=== PATIENT | male | born 1955 | race Caucasian/White ===

== ENCOUNTER 2016-11-17 20:35 | Inpatient (IN) | payer OTHER ==
[~2016-11-17 20:35] MED LIST: ALUM5LIQ PO; CIME200T2 PO; OMEP20TA39 PO; SUST600T4 PO; TRAZ100 PO; ULTR50TA PO
[2016-11-17 20:40] VITALS: O2SAT 100
[2016-11-17 20:41] VITALS: BP 146/80; PULSE 91; RESP 24; TEMP 98.6; O2SAT 100
--- NOTE | 2016-11-17 21:11 | PD ---
HPI Chief Complaint: Respiratory Symptoms Time Seen by Provider: 20:45 Travel History International Travel<30 days: No Contact w/Intl Traveler<30days: No Traveled to known affect area: No History of Present Illness HPI The patient is a 61 year old male who presents to the [facility] emergency department with a history of shortness of breath that he reports is been ongoing for the last 1-2 months. He reports that the symptoms seemed to be gradually getting worse with time. He reports that he last saw his oncologist approximately one month ago. He reports that he underwent 35 rounds of radiation therapy and 8 rounds of chemotherapy and has been told that he is in remission. He reports that his oncologist is Dr. Betancourt. He reports that he has been taking food by mouth for the last 2 months in spite of having a feeding tube in place. He also reports that he's had a tracheostomy in place and does not feel that he needs this any longer. He has attempted to follow-up with a GI doctor as well as an ENT to have both of these devices removed, however he was told that he needed to travel to another city to do this as there are no local physicians that take his insurance. He reports that he does not have a mode of transport. He requested they be removed today in the emergency department. The patient reports that he's had chest pain associated with the shortness of breath. He reports that he's had a cough occasionally productive of white to clear sputum. He reports that he has had intermittent fevers that are subjective over the last month. He reports that he's had chills. The patient reports that he has had drainage around his feeding tube site and is concerned that there may be an infection locally there. The patient denies any neck pain, abdominal pain (other than around his feeding tube site), vomiting, diarrhea, urinary symptoms, or neurologic symptoms. [facility] Past Medical History Narrative Medical The patient's past medical history is significant for throat cancer status post treatment, history of a heart murmur, history of cerebrovascular accident in 2016, history of HIV, acid reflux, history of DVT, history of bipolar disorder Anemia: Yes Arthritis: Yes (OSTEOARTHRITIS) Autoimmune Disease: Yes (HIV) Depression: Yes Cardiovascular Problems: Yes (MURMUR) Cirrhosis: Yes COPD: Yes Cerebrovascular Accident: Yes (CVA 2015) Diminished Hearing: No GERD: Yes Genitourinary: Yes (BPH) Hepatitis: Yes Psychiatric: Yes (PSYCHOSIS - PTSD) Respiratory: Yes (THROAT CA/TRACH) Past Surgical History Narrative Surgical The patient's past surgical history is significant for tracheostomy placement, feeding tube placement Other Surgery: Yes (TRACH) Social History Alcohol Use: Yes (DAILY) Tobacco Use: Yes (DAILY) Substance Use: No Allergies-Medications (Allergen,Severity, Reaction): Coded Allergies: No Known Allergies (Verified , 11/17/16) Reported Meds & Prescriptions Reported Meds & Active Scripts Active Reported Prezista (Darunavir) 800 Mg Tab 800 Mg PO DAILY Genvoya (Gwdtzqqaxtnt-Nxdemrvvtp-Zzsuozkfzhyq-Tenofvir) [phone] Mg Tab 1 Tab PO DAILY Morphine IR (Morphine Sulfate) 15 Mg Tab 15 Mg PO Q12HR PRN Sulfamethoxazole-Trimethoprim 800-160 Mg Tab 1 Tab PO BID PRN Review of Systems Except as stated in HPI: all other systems reviewed are Neg General / Constitutional: Positive: Fever, Chills Eyes: No: Visual changes HENT: Positive: Congestion, No: Headaches Cardiovascular: Positive: Chest Pain or Discomfort, No: Edema Respiratory: Positive: Cough, Shortness of Breath, No: Stridor Gastrointestinal: No: Nausea, Vomiting, Diarrhea, Abdominal Pain Genitourinary: No: Urgency, Frequency, Dysuria, Flank Pain Musculoskeletal: No: Pain Skin: Positive Other (drainage around feeding tube site), No Rash Neurologic: No: Weakness, Focal Abnormalities, Coordination Problem, Change in Mentation, Slurred Speech, Sensory Disturbance Psychiatric: No: Depression Endocrine: No: Polydipsia Hematologic/Lymphatic: No: Easy Bruising Physical Exam Narrative General: The patient is a well-developed, thin appearing male in no acute distress. The patient has a tracheostomy in place that appears to be in good repair without any visible drainage. The patient is saturating 99-100% on room air. Head and Neck exam: Head is normocephalic atraumatic. Eyes: EOMI, pupils are equal round and reactive to light. Nose: Midline septum with pink mucous membranes Mouth: Dentition unremarkable. Moist mucus membranes. Posterior oropharynx is not erythematous. No tonsillar hypertrophy. Uvula midline. Airway patent. Neck: No palpable lymphadenopathy. No nuchal rigidity. No thyromegaly. Tracheostomy in place that appears to be in good repair without any visible drainage. Cardiovascular: Regular rate and rhythm without murmurs, gallops, or rubs. Lungs: Clear to auscultation bilaterally. No wheezes, rhonchi, or rales. Abdomen: Soft, without tenderness to palpation in all 4 quadrants of the abdomen. No guarding, rebound, or rigidity. Normal bowel sounds are audible. The patient has irritation around his feeding tube site and minimal clear drainage. This was cultured. No tenderness on palpation of McBurney's point. Negative Christy' s sign. Extremities: No clubbing, cyanosis, or edema. 2+ pulses in all 4 extremities. No calf tenderness on palpation. Back: No spinous process tenderness to palpation. No costovertebral angle tenderness to palpation. Neurologic Exam: Grossly nonfocal. Skin Exam: No rash noted. Intact skin that is warm and dry. Data Data Last Documented VS Vital Signs Date Time Temp Pulse Resp B/P Pulse Ox O2 Delivery O2 Flow Rate FiO2 11/17/16 21:26 100 Trach Collar 6.00 28 11/17/16 20:41 98.6 91 24 146/80 Orders Electrocardiogram (11/17/16 21:) Complete Blood Count With Diff (11/17/16 21:) Comprehensive Metabolic Panel (11/17/16 21:) Creatine Kinase (Cpk) (11/17/16 21:) Ckmb (Isoenzyme) Profile (11/17/16 21:01) Troponin I (11/17/16 21:) B-Type Natriuretic Peptide (11/17/16 21:01) Prothrombin Time / Inr (Pt) (11/17/16 21:) Act Partial Throm Time (Ptt) (11/17/16 21:01) Arterial Blood Gas (Abg) (11/17/16 21:) Lipase (11/17/16 21:01) Urinalysis - C+S If Indicated (11/17/16 21:) D-Dimer (11/17/16 21:) Magnesium (Mg) (11/17/16 21:) Wound Culture And Gram Stain (11/17/16 21:) Chest, Single Ap (11/17/16 21:) Iv Access Insert/Monitor (11/17/16 21:) Ecg Monitoring (2/12/17 21:01) Oximetry (11/17/16 21:01) Lactic Acid Sepsis Protocol (11/17/16 21:01) Blood Culture (11/17/16 21:01) Ct Pulmonary Angiogram (11/17/16 21:34) Morphine Inj (Morphine Inj) (11/17/16 22:30) Ondansetron Inj (Zofran Inj) (11/17/16 22:30) Sodium Chlor 0.9% 1000 Ml Inj (Ns 1000 M (11/17/16 22:30) Iohexol 350 Inj (Omnipaque 350 Inj) (11/17/16 23:05) Ceftriaxone Inj (Rocephin Inj) (11/17/16 23:45) Azithromycin Inj (Zithromax Inj) (11/17/16 23:45) Admit Order (Ed Use Only) (11/18/16 00:00) Labs Laboratory Tests Test 11/17/16 11/17/16 21:05 21:07 White Blood Count 6.0 TH/MM3 Red Blood Count 3.67 MIL/MM3 Hemoglobin 12.7 GM/DL Hematocrit 36.8 % Mean Corpuscular Volume 100.2 FL Mean Corpuscular Hemoglobin 34.5 PG Mean Corpuscular Hemoglobin 34.5 % Concent Red Cell Distribution Width 12.9 % Platelet Count 181 TH/MM3 Mean Platelet Volume 8.6 FL Neutrophils (%) (Auto) 47.4 % Lymphocytes (%) (Auto) 34.5 % Monocytes (%) (Auto) 10.2 % Eosinophils (%) (Auto) 6.2 % Basophils (%) (Auto) 1.7 % Neutrophils # (Auto) 2.8 TH/MM3 Lymphocytes # (Auto) 2.1 TH/MM3 Monocytes # (Auto) 0.6 TH/MM3 Eosinophils # (Auto) 0.4 TH/MM3 Basophils # (Auto) 0.1 TH/MM3 CBC Comment DIFF FINAL Differential Comment Prothrombin Time 10.3 SEC Prothromb Time International 0.9 RATIO Ratio Activated Partial 25.6 SEC Thromboplast Time D-Dimer Quantitative (PE/DVT) 3.86 MG/L FEU Sodium Level 139 MEQ/L Potassium Level 3.6 MEQ/L Chloride Level 103 MEQ/L Carbon Dioxide Level 27.6 MEQ/L Anion Gap 8 MEQ/L Blood Urea Nitrogen 11 MG/DL Creatinine 0.89 MG/DL Estimat Glomerular Filtration 87 ML/MIN Rate Random Glucose 88 MG/DL Lactic Acid Level 2.0 mmol/L Calcium Level 9.0 MG/DL Magnesium Level 1.9 MG/DL Total Bilirubin 0.2 MG/DL Aspartate Amino Transf 18 U/L (AST/SGOT) Alanine Aminotransferase 17 U/L (ALT/SGPT) Alkaline Phosphatase 108 U/L Total Creatine Kinase 67 U/L Troponin I LESS THAN 0.02 NG/ML B-Type Natriuretic Peptide 92 PG/ML Total Protein 8.1 GM/DL Albumin 3.3 GM/DL Lipase 254 U/L Blood Gas Puncture Site RT RADIAL Blood Gas Patient Temperature 98.6 Blood Gas HCO3 22 mmol/L Blood Gas Base Excess -0.9 mmol/L Blood Gas Oxygen Saturation 89 % Arterial Blood pH 7.53 Arterial Blood Partial 26 mmHg Pressure CO2 Arterial Blood Partial 68 mmHG Pressure O2 Arterial Blood Oxygen Content 15.1 Vol % Arterial Blood 4.6 % Carboxyhemoglobin Arterial Blood Methemoglobin 1.8 % Blood Gas Hemoglobin 12.0 G/DL Oxygen Delivery Device ROOM AIR Blood Gas Inspired Oxygen 21 % [facility] Medical Decision Making Medical Screen Exam Complete: Yes Emergency Medical Condition: Yes Medical Record Reviewed: Yes Interpretation(s) Last Impressions CT Angiography 11/17/162133 Signed Impressions: Service Date/Time: Thursday, November 17, 2016 22:51 - CONCLUSION: 1. No evidence of pulmonary embolism. 2. Aneurysmal dilatation of the descending and descending thoracic aorta to 5.4 cm. 3. Left perihilar pneumonitis with findings of FERCHO in the lingula Enmanuel Cortez MD Chest X-Ray 11/17/162100 Signed Impressions: Service Date/Time: Thursday, November 17, 2016 21:21 - CONCLUSION: 1. Tracheostomy in satisfactory position. Minimal basilar dependent atelectasis. Juan Colin MD Differential Diagnosis Pneumonia, versus congestive heart failure, versus COPD exacerbation, versus pulmonary embolism. Narrative Course During the course of the patients emergency department visit, the patients history, examination, and differential diagnosis were reviewed with the patient. The patient had IV access obtained and blood work sent for analysis. The patient's was on a youth nutritional monitor with oximetry and blood pressure monitoring. An EKG was done on arrival. The patient's EKG shows a sinus rhythm with occasional premature atrial contractions, incomplete right bundle branch block, left anterior fascicular block, no acute ST segment elevation is noted. The patient was provided morphine 4 mg IV 1 for pain, Zofran 4 mg IV for nausea. Normal saline IV fluids were started. After an infiltrate was noted on CTA the patient was given Rocephin 1 g IV, azithromycin 500 mg IV. The patients laboratory studies were reviewed and remarkable for an ABG that showed hypoxemia on room air and the patient reportedly is not on supplemental oxygen at home. The patient's pH was 7.526, PCO2 26.2, PO2 68.4, bicarbonate 21.6. The patient was started on supplemental oxygen by mask to his tracheostomy. He sees remarkable for a white count of 6, hemoglobin 12.7, platelets 181 with a monocytosis at 10.2, CMP is remarkable for GFR of 87, initial set of cardiac enzymes are negative, BNP is 92, lipase 254, PT PTT unremarkable, d-dimer elevated at 3.86, CTA to rule out PE was ordered. Urinalysis was unremarkable. Radiology studies were reviewed and remarkable for a chest x-ray that shows a tracheostomy in satisfactory position, minimal bibasilar dependent atelectasis, CTA to rule out PE shows no evidence of pulmonary embolism, aneurysmal dilatation of the descending and ascending thoracic aorta to 5.4 cm. Left perihilar pneumonitis with findings of FERCHO the lingula. The patients results were discussed with the patient, including the plan of care. I explained that further testing and/ or monitoring is indicated based on the patients history, examination, and/ or laboratory findings. Therefore, I recommended admission for additional evaluation. The patient expressed understanding and was agreeable with this plan. The patient was admitted to the hospital in guarded condition and [facility] Physician Communication Physician Communication The patient's case was discussed with who did agree to admit the patient for further evaluation and treatment at this time. Diagnosis Primary Impression: Pneumonitis Additional Impressions: Tracheostomy present Hypoxia Admitting Information Admitting Physician Requests: Admit Natasha Ibrahim MD Nov 17, 2016 21:11
[2016-11-17 21:18] LABS: BLOOD GAS BASE EXCESS -0.9 mmol/L (-2-2); BLOOD GAS CARBOXYHEMOGLOBIN 4.6 % (0-4); BLOOD GAS HCO3 22 mmol/L (22-26); BLOOD GAS METHEMOGLOBIN 1.8 % (0-2); BLOOD GAS O2 HGB SATURATION 89 % (90-100); BLOOD GAS OXYGEN CONTENT 15.1 Vol % (12.0-20.0); BLOOD GAS PCO2 26 mmHg (38-42); BLOOD GAS PO2 68 mmHG (61-120); CRITICAL VALUE YES; DRAW SITE RT RADIAL; FIO2 21 %; NUMBER OF ARTERIAL PUNCTURES 1; OXYGEN DEVICE ROOM AIR; STAT YES; TEMP CORR TO 98.6; ULNAR PULSE PRESENT
[2016-11-17 21:26] VITALS: O2SAT 100
[2016-11-17 21:55] LABS: AUTOMATED NEUTROPHIL # 2.8 TH/MM3 (1.8-7.7); BASOPHIL # 0.1 TH/MM3 (0-0.2); BASOPHIL % 1.7 % (0.0-2.0); EOSINOPHIL # 0.4 TH/MM3 (0-0.4); EOSINOPHIL % 6.2 % (0.0-4.0); HEMATOCRIT 36.8 % (39.0-51.0); HEMO FLAGS DIFF FINAL; LYMPH % 34.5 % (9.0-44.0); LYMPHOCYTE # 2.1 TH/MM3 (1.0-4.8); MEAN CELL VOLUME 100.2 FL (80.0-100.0); MEAN CORPUSCULAR HEMOGLOBIN 34.5 PG (27.0-34.0); MEAN CORPUSCULAR HGB CONC 34.5 % (32.0-36.0); MONO % 10.2 % (0.0-8.0); NEUT % 47.4 % (16.0-70.0); PLATELET COUNT 181 TH/MM3 (150-450); RED BLOOD COUNT 3.67 MIL/MM3 (4.50-5.90); RED CELL DISTRIBUTION WIDTH 12.9 % (11.6-17.2)
--- NOTE | 2016-11-17 21:58 | RADRPT ---
EXAM DATE/TIME: 11/17/2016 21:21 [facility] COMPARISON: No previous studies available for comparison. INDICATIONS : Short of breath MEDICAL HISTORY : Carcinoma, esophageal. SURGICAL HISTORY : ENCOUNTER: Initial ACUITY: 2 months PAIN SCORE: 0/10 LOCATION: Bilateral chest FINDINGS: A single view of the chest demonstrates tracheostomy in satisfactory position. Minimal basilar depend ent atelectasis. No effusion. No pneumothorax. CONCLUSION: 1. Tracheostomy in satisfactory position. Minimal basilar dependent atelectasis. Juan Colin MD on November 17, 2016 at 21:55 Board Certified Radiologist. This report was verified electronically.
[2016-11-17 22:09] LABS: APTT (PATIENT) 25.6 SEC (24.3-30.1); INTERNATIONAL NORMALIZED RATIO 0.9 RATIO; PROTHROMBIN TIME - PATIENT 10.3 SEC (9.8-11.6)
[2016-11-17 22:22] LABS: ALT (GPT) 17 U/L (12-78); ANION GAP 8 MEQ/L (5-15); AST (GOT) 18 U/L (15-37); BICARBONATE 27.6 MEQ/L (21.0-32.0); BLOOD UREA NITROGEN 11 MG/DL (7-18); CHLORIDE 103 MEQ/L (98-107); GLOMERULAR FILTRATION RATE 87 ML/MIN (>89); MAGNESIUM 1.9 MG/DL (1.5-2.5); POTASSIUM 3.6 MEQ/L (3.5-5.1); SODIUM (NA) 139 MEQ/L (136-145)
[2016-11-17 22:26] LABS: ALKALINE PHOSPHATASE 108 U/L (45-117); TOTAL BILIRUBIN ADULT 0.2 MG/DL (0.2-1.0)
[2016-11-17] MEDS: SODIUM CHLOR 0.9% 1000 ML INJ 1,000 ML IV SCH (22:27)
[2016-11-17 22:28] LABS: CREATINE KINASE 67 U/L (39-308)
[2016-11-17] MEDS ORDERED: ONDANSETRON HCL 4 MG/2 ML VIAL IV PUSH ONE (22:30)
[2016-11-17] MEDS ORDERED: MORPHINE SULFATE 4 MG/ML INJ IV PUSH ONE (22:30)
[2016-11-17] MEDS ORDERED: IOHEXOL 350 MG/ML 10 ML VIAL (for RAD DIAG) IV ONE (23:05)
--- NOTE | 2016-11-17 23:19 | RADRPT ---
EXAM DATE/TIME: 11/17/2016 22:51 [facility] COMPARISON: No previous studies available for comparison. INDICATIONS : Short of breath. IV CONTRAST: 75 cc Omnipaque 350 (iohexol) IV RADIATION DOSE: 7.25 CTDIvol (mGy) MEDICAL HISTORY : Gastroesophageal reflux disease. Chronic obstructive pulmonary disease. CVA. Throat cancer. SURGICAL HISTORY : None. ENCOUNTER: Initial ACUITY: 1 day PAIN SCALE: 0/10 LOCATION: chest TECHNIQUE: Volumetric scanning of the chest was performed using a pulmonary embolism protocol MIP images were re constructed. Using automated exposure control and adjustment of the mA and/or kV according to patien t size, radiation dose was kept as low as reasonably achievable to obtain optimal diagnostic quality images. FINDINGS: Examination of the pulmonary vasculature demonstrates good filling of the main, lobar and segmental b ranches. There are no filling defects to suggest pulmonary embolism. Multiplanar reconstructions are also unremarkable. A tracheostomy tube is in place in the midline. There is aneurysmal dilatation of the face and the ao rta measuring 5.4 cm and the descending thoracic aorta measuring 5.1 cm. Coronary artery calcificatio ns are present. No abnormally enlarged lymph nodes are identified. No pulmonary nodules are identified. No pleural effusions are identified. There is left perihilar opa city without consolidation consisted with perihilar pneumonia. There is a tree in bud appearance cons istent with mycobacterium avium intracellulare in the lingula. CONCLUSION: 1. No evidence of pulmonary embolism. 2. Aneurysmal dilatation of the descending and descending thoracic aorta to 5.4 cm. 3. Left perihilar pneumonitis with findings of FERCHO in the lingula Enmanuel Cortez MD on November 17, 2016 at 23:13 Board Certified Radiologist. This report was verified electronically.
[2016-11-17] MEDS ORDERED: cefTRIAXone INJ 1,000 MG in SODIUM CHLORIDE 0.9% INJ 100 ML IV ONE (23:45)
[2016-11-17] MEDS ORDERED: AZITHROMYCIN INJ 500 MG in SODIUM CHLOR 0.9% 250 ML INJ 250 ML IV ONE (23:45)
[2016-11-18] VITALS (13 sets, daily range): BP systolic 113–138; BP diastolic 61–84; PULSE 73–96; RESP 14–31; TEMP 98.1–98.6; O2SAT 97–99
[2016-11-18] MEDS ORDERED: SODIUM CHLORIDE 0.9% FLUSH 5 ML FLUSH FLUSH PRN (00:15)
[2016-11-18] MEDS ORDERED: BISACODYL 10 MG SUPP PR PRN (00:15)
[2016-11-18] MEDS ORDERED: RESP: ALBUTEROL 2.5 MG/IPRATROPIUM 0.5 MG NEB (PRN) NEB (00:15)
[2016-11-18] MEDS ORDERED: ONDANSETRON HCL 4 MG/2 ML VIAL IVP PRN (00:15)
[2016-11-18] MEDS ORDERED: methylPREDNISolone SOD SUCC 125 MG/2 ML VIAL IV PUSH ONE (00:15)
[2016-11-18] MEDS ORDERED: ACETAMINOPHEN 325 MG TAB PO PRN (00:15)
[2016-11-18] MEDS: MORPHINE SULFATE 4 MG/ML INJ IV PRN ×2 (01:24→04:59)
[2016-11-18] MEDS ORDERED: CHLORHEXIDINE GLUCONATE 2 % 1 PACK (2 CLOTHS) TOP PRN (01:30)
[2016-11-18] MEDS ORDERED: MISCELLANEOUS NURSING INFORMATION XX SCH (01:30)
--- NOTE | 2016-11-18 01:56 | HHI.HP ---
HPI Service [facility] Primary Care Physician [facility] Admission Diagnosis Hypoxia on RA, Pneumonia- suspicioius for FERCHO. Diagnoses: (1) Hypoxia Diagnosis: Principal (2) Pneumonitis Diagnosis: Principal (3) HIV (human immunodeficiency virus infection) Diagnosis: Principal (4) FERCHO (mycobacterium avium-intracellulare) Diagnosis: Principal (5) Tracheostomy present Diagnosis: Principal Travel History International Travel<30 Days: No Contact w/Intl Traveler <30 Da: No Traveled to Known Affected Are: No History of Present Illness This is a 61-year-old male with a PMH of Throat CA s/p Tracheostomy/PEG Tube Placement, HIV (Unknown CD4), Bipolar Disorder, PTSD, h/o CVA and COPD who presented to the ER w/ complaints of SOB x2 months. Pt is significantly poor historian, unable to provide clear history. Reports ongoing SOB x2 months, but then states he was seen by his Oncologist and told he was in remission from Throat CA so would like his Tracheostomy and his PEG Tube removed. Denies fever , chills or chest pain. Does report some drainage from around PEG Tube, however insists he would like it removed. On arrival, BP 146/80, HR 91, O2 sat 100% on RA, Afebrile. ABG with hypoxia, pH 7.53, PCO2 26, PO2 68 on RA, placed on Trach Collar w/ 100% O2 sat. CVC at baseline. Chemistry essentially unremarkable. Lactic Acid normal. Troponin negative. INR 0.9. D-dimer 3.86. CXR with tracheostomy, minimal basilar atelectasis. CTA Pulm negative for PE , noted to have aneurysmal dilatation of descending thoracic aorta, left perihilar pneumonitis with findings of FERCHO. S/p Blood Cultures, Rocephin/ Zithro in ER. Review of Systems Except as stated in HPI: all other systems reviewed are Neg ROS: 14 point review of systems otherwise negative. Past Family Social History Past Medical History PMH: Throat CA s/p Tracheostomy/PEG Tube Placement, HIV (Unknown CD4), Bipolar Disorder, PTSD, h/o CVA and COPD Past Surgical History PAST SURGICAL HISTORY: Tracheostomy, PEG Tube Allergies: Coded Allergies: No Known Allergies (Verified , 11/17/16) Family History PAST FAMILY HISTORY: Reviewed. No h/o DM or CAD Social History PAST SOCIAL HISTORY: Reportedly daily alcohol and tobacco. Negative for drugs. Physical Exam Vital Signs Vital Signs Date Time Temp Pulse Resp B/P Pulse Ox O2 Delivery O2 Flow Rate FiO2 11/18/16 00:30 74 24 113/62 99 Room Air 11/17/16 21:26 100 Trach Collar 6.00 28 11/17/16 20:46 Room Air 11/17/16 20:41 98.6 91 24 146/80 100 11/17/16 20:40 100 Room Air Physical Exam PE: GENERAL: Middle-aged thin, chronically ill appearing white male in no acute distress. Trach collar in place. HEENT: PERRLA, EOMI. No scleral icterus or conjunctival pallor. No lid lag or facial droop. CARDIOVASCULAR: Regular rate and rhythm. No obvious murmurs to auscultation. No chest tenderness to palpation. RESPIRATORY: No obvious rhonchi or wheezing. Clear to auscultation. Breath sounds equal bilaterally. GASTROINTESTINAL: Abdomen soft, non-tender, nondistended. BS normal. PEG tube in place, mild surrounding erythema, serous drainage. MUSCULOSKELETAL: Extremities without clubbing, cyanosis, or edema. No obvious deformities. NEUROLOGICAL: Awake, alert and oriented x4. No focal neurologic deficits. Moving both upper and lower extremities spontaneously. Laboratory Laboratory Tests Test 11/17/16 11/17/16 21:05 21:07 White Blood Count 6.0 Red Blood Count 3.67 Hemoglobin 12.7 Hematocrit 36.8 Mean Corpuscular Volume 100.2 Mean Corpuscular Hemoglobin 34.5 Mean Corpuscular Hemoglobin 34.5 Concent Red Cell Distribution Width 12.9 Platelet Count 181 Mean Platelet Volume 8.6 Neutrophils (%) (Auto) 47.4 Lymphocytes (%) (Auto) 34.5 Monocytes (%) (Auto) 10.2 Eosinophils (%) (Auto) 6.2 Basophils (%) (Auto) 1.7 Neutrophils # (Auto) 2.8 Lymphocytes # (Auto) 2.1 Monocytes # (Auto) 0.6 Eosinophils # (Auto) 0.4 Basophils # (Auto) 0.1 CBC Comment DIFF FINAL Differential Comment Prothrombin Time 10.3 Prothromb Time International 0.9 Ratio Activated Partial 25.6 Thromboplast Time D-Dimer Quantitative (PE/DVT) 3.86 Sodium Level 139 Potassium Level 3.6 Chloride Level 103 Carbon Dioxide Level 27.6 Anion Gap 8 Blood Urea Nitrogen 11 Creatinine 0.89 Estimat Glomerular Filtration 87 Rate Random Glucose 88 Lactic Acid Level 2.0 Calcium Level 9.0 Magnesium Level 1.9 Total Bilirubin 0.2 Aspartate Amino Transf 18 (AST/SGOT) Alanine Aminotransferase 17 (ALT/SGPT) Alkaline Phosphatase 108 Total Creatine Kinase 67 Troponin I LESS THAN 0.02 B-Type Natriuretic Peptide 92 Total Protein 8.1 Albumin 3.3 Lipase 254 Blood Gas Puncture Site RT RADIAL Blood Gas Patient Temperature 98.6 Blood Gas HCO3 22 Blood Gas Base Excess -0.9 Blood Gas Oxygen Saturation 89 Arterial Blood pH 7.53 Arterial Blood Partial 26 Pressure CO2 Arterial Blood Partial 68 Pressure O2 Arterial Blood Oxygen Content 15.1 Arterial Blood 4.6 Carboxyhemoglobin Arterial Blood Methemoglobin 1.8 Blood Gas Hemoglobin 12.0 Oxygen Delivery Device ROOM AIR Blood Gas Inspired Oxygen 21 Date/Time Procedure Status Source Growth 11/17/16 21:15 Aerobic Blood Culture Received Blood Peripheral Pending 11/17/16 21:15 Anaerobic Blood Culture Received Blood Peripheral Pending 11/17/16 21:05 Gram Stain Received Wound Abdomen Pending 11/17/16 21:05 Wound Culture Received Wound Abdomen Pending Result Diagram: 11/17/16210411/17/162104 Assessment and Plan Problem List: (1) Pneumonitis ICD Code: J18.9 Status: Acute (2) Hypoxia ICD Code: R09.02 Status: Acute (3) FERCHO (mycobacterium avium-intracellulare) ICD Code: A31.0 Status: Acute (4) HIV (human immunodeficiency virus infection) ICD Code: Z21 Status: Acute (5) Tracheostomy present ICD Code: Z93.0 Status: Acute Assessment and Plan A/P: 1. Pneumonitis: c/o SOB x1-2 months, now progressively worse, however preoccupied w/ removal of Tracheostomy. CXR w/ minimal basilar atelectasis. CTA Pulm negative for PE, aneurysmal dilatation of descending thoracic aorta, left perihilar pneumonitis with findings of FERCHO in the lingula, images reviewed by me. S/p Blood Cultures, Rocephin/Zithro. Add Blood Cultures for FERCHO, continue w/ IV Abx. Solu-Medrol. h/o HIV, unclear if compliant w/ meds, check lymphocyte panel. Consult ID for further recommendations. 2. Hypoxia: ABG w/ pH 7.53, PCO2 26, PO2 68 on RA, O2 sat 89%. Currently on Trach collar w/ FIO2 28% at 6L, O2 sat 100%. Telemetry, monitor O2 sat. 3. FERCHO: As above, CTA w/ findings consistent w/ FERCHO, +h/o HIV, unclear CD4 count, check Blood Cultures for FERCHO. ID for further eval. DuoNeb, Symbicort. 4. HIV: Unknown CD4. On HAART per med rec, unclear if compliant. Check Lymphocyte Panel. 5. DVT Prophylaxis: SCD/Teds. 6. Social work for d/c planning as needed. 7. Case discussed w/ ER physician at length Physician Certification 2 Midnight Certification Type: Admission for Inpatient Services Order for Inpatient Services The services are ordered in accordance with Medicare regulations or non- Medicare payer requirements, as applicable. In the case of services not specified as inpatient-only, they are appropriately provided as inpatient services in accordance with the 2-midnight benchmark. Estimated LOS (days): 2 days is the estimated time the patient will need to remain in the hospital, assuming treatment plan goals are met and no additional complications. Post-Hospital Plan: Not yet determined Ewa Dominguez MD Nov 18, 2016 01:56
[2016-11-18] MEDS: CHLORHEXIDINE GLUCONATE 2 % 1 PACK (2 CLOTHS) TOP SCH (03:23)
[2016-11-18 04:57] LABS: BLOOD, URINE NEG (NEG); GLUCOSE,URINE NEG (NEG); KETONE, URINE NEG (NEG); NITRITE,URINE NEG (NEG); URINE COLOR LIGHT-YELLOW (YELLW/STRAW)
[2016-11-18 05:03] LABS: COMMENT (UR) CULT NOT INDICATED; CULTURE IF INDICATED CULT NOT INDICATED
[2016-11-18 05:53] LABS: AUTOMATED NEUTROPHIL # 4.9 TH/MM3 (1.8-7.7); BASOPHIL % 0.5 % (0.0-2.0); EOSINOPHIL # 0.2 TH/MM3 (0-0.4); HEMATOCRIT 32.9 % (39.0-51.0); HEMO FLAGS DIFF FINAL; LYMPH % 10.6 % (9.0-44.0); LYMPHOCYTE # 0.6 TH/MM3 (1.0-4.8); MEAN CELL VOLUME 100.4 FL (80.0-100.0); MEAN CORPUSCULAR HEMOGLOBIN 35.2 PG (27.0-34.0); MEAN CORPUSCULAR HGB CONC 35.1 % (32.0-36.0); MONO % 2.9 % (0.0-8.0); PLATELET COUNT 165 TH/MM3 (150-450); RED BLOOD COUNT 3.27 MIL/MM3 (4.50-5.90); RED CELL DISTRIBUTION WIDTH 12.8 % (11.6-17.2)
[2016-11-18 06:12] LABS: ALT (GPT) 15 U/L (12-78); ANION GAP 8 MEQ/L (5-15); AST (GOT) 15 U/L (15-37); BICARBONATE 22.7 MEQ/L (21.0-32.0); BLOOD UREA NITROGEN 12 MG/DL (7-18); CHLORIDE 108 MEQ/L (98-107); GLOMERULAR FILTRATION RATE 89 ML/MIN (>89); POTASSIUM 4.1 MEQ/L (3.5-5.1); SODIUM (NA) 139 MEQ/L (136-145)
[2016-11-18 06:14] LABS: ALKALINE PHOSPHATASE 98 U/L (45-117); TOTAL BILIRUBIN ADULT 0.2 MG/DL (0.2-1.0)
[2016-11-18] MEDS: SODIUM CHLOR 0.9% 1000 ML INJ 1,000 ML IV SCH ×2 (08:39→17:00)
[2016-11-18] MEDS: SODIUM CHLORIDE 0.9% FLUSH 5 ML FLUSH FLUSH SCH ×2 (08:39→21:00)
[2016-11-18] MEDS: ACETAMINOPHEN/HYDROcodone 325 MG/5 MG TAB PO PRN ×3 (08:40→20:58)
--- NOTE | 2016-11-18 09:46 | EKG ---
Date Performed: 11/17/2016 Time Performed: 20:49:23 PTAGE: 61 years EKG: Sinus rhythm WITH FREQUENT SUPRAVENTRICULAR PREMATURE COMPLEXES POSSIBLE RIGHT VENTRICULAR CONDUCTION DELAY LEFT ANTERIOR FASCICULAR BLOCK ABNORMAL ECG Compared to prior tracing no significant change PREVIOUS TRACING : 11/01/2013 21.27.50 DOCTOR: Enmanuel Hemphill Interpretating Date/Time 11/18/2016 09:45:01
--- NOTE | 2016-11-18 15:38 | PD.ID.CON ---
History of Present Illness Service Infectious Disease Consult Requested By Reason for Consult Evaluation and Mment of Primary Care Physician [facility] Diagnoses: History of Present Illness is a 61 y/o male with a PMH of Throat CA s/p Tracheostomy/PEG Tube Placement, HIV (Unknown CD4), Bipolar Disorder, PTSD, h/o CVA and COPD who presented to the ER w/ complaints of SOB x2 months. Pt is significantly poor historian, unable to provide clear history. Reports ongoing SOB x2 months, but then states he was seen by his Oncologist and told he was in remission from Throat CA so would like his Tracheostomy and his PEG Tube removed. Denies fever , chills or chest pain. Does report some drainage from around PEG Tube, however insists he would like it removed. On arrival, BP 146/80, HR 91, O2 sat 100% on RA, Afebrile. ABG with hypoxia, pH 7.53, PCO2 26, PO2 68 on RA, placed on Trach Collar w/ 100% O2 sat. Chemistry essentially unremarkable. Lactic Acid normal. Troponin negative. INR 0.9. D-dimer 3.86. CXR with tracheostomy , minimal basilar atelectasis. CTA Pulm negative for PE, noted to have aneurysmal dilatation of descending thoracic aorta, left perihilar pneumonitis with findings of FERCHO. S/p Blood Cultures, Rocephin/Zithro in ER. Patient reports he has been trying for last few months to have trach and PEG removed but he was told he had to go to [place] for removal by doctors in that town. He reports he has been [facility] doctors and they refuse to remove trach and PEG. Patient reports he eats a full meal and does not need the PEG tube and would like to have it removed. Regarding his HIV meds he reports he has been off these meds for over a week now and only takes these meds when he feels bad. Clearly appears non compliant and could have a resistant HIV strain at this point. He sees at [facility] and would not give me details about when he last saw him and why he has not discussed the side effects of these meds to . ID was consulted due to SOB on presentation, and abnormal CT chest with tree in bud appearance in patient with HIV possible AIDS given fact he is on Bactrim. Review of Systems ROS Limitations: Uncooperative, Psychotic, Poor Historian Constitutional: DENIES: Diaphoretic episodes, Fatigue, Fever, Weight gain, Weight loss, Chills, Dizziness, Change in appetite, Night Sweats Respiratory: COMPLAINS OF: Shortness of breath, DENIES: Sputum production Except as stated in HPI: all other systems reviewed are Neg Past Family Social History Allergies: Coded Allergies: No Known Allergies (Verified , 11/17/16) Past Medical History Throat CA s/p Tracheostomy/PEG Tube Placement, HIV (Unknown CD4), Bipolar Disorder, PTSD, h/o CVA COPD Past Surgical History Tracheostomy, PEG Tube Port placement and removal. Reported Medications Reported Meds & Active Scripts Active Reported Prezista (Darunavir) 800 Mg Tab 800 Mg PO DAILY Genvoya (Bglskacsnkxt-Agcoaqdrue-Whzmqcebwjak-Tenofvir) [phone] Mg Tab 1 Tab PO DAILY Morphine IR (Morphine Sulfate) 15 Mg Tab 15 Mg PO Q12HR PRN Sulfamethoxazole-Trimethoprim 800-160 Mg Tab 1 Tab PO BID PRN Active Ordered Medications Current Medications Medications (Trade) Dose Ordered Sig/Freddy Route Start Time Stop Time Status Last Admin (NS Flush) 2 ml UNSCH PRN FLUSH 11/18/16 00:15 (NS Flush) 2 ml BID FLUSH 11/18/16 09:00 11/18/16 21:00 (Zofran Inj) 4 mg Q6H PRN IVP 11/18/16 00:15 (Dulcolax Supp) 10 mg DAILY PRN CA 11/18/16 00:15 (Tylenol) 650 mg Q6H PRN PO 11/18/16 00:15 ([place] 5-325 Mg) 1 tab Q4H PRN PO 11/18/16 00:15 11/18/16 20:58 Morphine Sulfate 2 mg 2 mg Q3H PRN IV 11/18/16 00:15 11/18/16 04:59 Ceftriaxone Sodium 1000 mg/ Sodium Chloride 100 ml @ 200 mls/hr Q24H IV 11/19/16 00:00 (Zithromax Inj/ NS 250 ml Inj) 250 ml @ 250 mls/hr Q24H IV 11/19/16 01:00 Miscellaneous Information 1 Q361D XX 11/18/16 01:30 11/18/16 01:30 (Chlorhexidine 2% Cloth) 3 pack Taper DAILY@04 TOP 11/18/16 04:00 11/14/17 03:59 11/18/16 03:23 Chlorhexidine Gluconate 3 pack 3 pack UNSCH PRN TOP 11/18/16 01:30 (D5W-1/2 NS 1000 ml Inj) 1,000 ml @ 0 mls/hr Q24H IV 11/18/16 21:00 Family History could not be obtained as patient very aggressive in talking and very disrespectful. Social History daily alcohol and smoking did not quantify. Jeferson ROSALES Has a girl friend of 10 yrs. Physical Exam Vital Signs Vital Signs Date Time Temp Pulse Resp B/P Pulse Ox O2 Delivery O2 Flow Rate FiO2 11/18/16 12:00 98.6 79 21 119/73 98 11/18/16 12:00 76 11/18/16 10:00 86 11/18/16 09:52 98 21 11/18/16 08:00 96 11/18/16 08:00 98.4 96 14 113/61 97 11/18/16 07:00 96 Room Air 11/18/16 06:00 90 11/18/16 04:00 98.5 81 31 117/63 98 11/18/16 04:00 81 11/18/16 02:00 88 11/18/16 00:30 74 24 113/62 99 Room Air 11/17/16 21:26 100 Trach Collar 6.00 28 11/17/16 20:46 Room Air 11/17/16 20:41 98.6 91 24 146/80 100 11/17/16 20:40 100 Room Air Physical Exam GENERAL: Thin built, temporal wasting, well-developed patient, in no apparent distress. SKIN: No rashes, ecchymoses or lesions. Cool and dry. HEAD: Atraumatic. Normocephalic. No temporal or scalp tenderness. EYES: Pupils equal round and reactive. Extraocular motions intact. No scleral icterus. No injection or drainage. ENT: Nose without bleeding, purulent drainage or septal hematoma. Throat without erythema, tonsillar hypertrophy or exudate. Uvula midline. Airway patent. NECK: Trach site ok. Supple, nontender, no meningeal signs. CARDIOVASCULAR: Regular rate and rhythm without murmurs, gallops, or rubs. RESPIRATORY: Clear to auscultation. Breath sounds equal bilaterally. No wheezes , rales, or rhonchi. Prior Port site scar with no e/o infection. Trach site with no e/o infection. PEG tube site with some discharge, tenderness out of proportion to clinical findings (did not even touch the PEG tube site and he started screaming at me and wanted pain meds) GASTROINTESTINAL: Abdomen soft, non-tender, nondistended. MUSCULOSKELETAL: Extremities without clubbing, cyanosis, or edema. No joint tenderness, effusion, or edema noted. No calf tenderness. Negative Homans sign bilaterally. NEUROLOGICAL: Awake and alert. Grossly non focal Psych: aggressive, disrespectful IV line sites with no e/o infection. Laboratory Laboratory Tests Test 11/17/16 11/17/16 11/18/16 11/18/16 21:05 21:07 02:00 04:12 White Blood Count 6.0 6.0 Red Blood Count 3.67 3.27 Hemoglobin 12.7 11.5 Hematocrit 36.8 32.9 Mean Corpuscular Volume 100.2 100.4 Mean Corpuscular Hemoglobin 34.5 35.2 Mean Corpuscular Hemoglobin 34.5 35.1 Concent Red Cell Distribution Width 12.9 12.8 Platelet Count 181 165 Mean Platelet Volume 8.6 8.7 Neutrophils (%) (Auto) 47.4 82.0 Lymphocytes (%) (Auto) 34.5 10.6 Monocytes (%) (Auto) 10.2 2.9 Eosinophils (%) (Auto) 6.2 4.0 Basophils (%) (Auto) 1.7 0.5 Neutrophils # (Auto) 2.8 4.9 Lymphocytes # (Auto) 2.1 0.6 Monocytes # (Auto) 0.6 0.2 Eosinophils # (Auto) 0.4 0.2 Basophils # (Auto) 0.1 0.0 CBC Comment DIFF FINAL DIFF FINAL Differential Comment Prothrombin Time 10.3 Prothromb Time International 0.9 Ratio Activated Partial 25.6 Thromboplast Time D-Dimer Quantitative (PE/DVT) 3.86 Sodium Level 139 139 Potassium Level 3.6 4.1 Chloride Level 103 108 Carbon Dioxide Level 27.6 22.7 Anion Gap 8 8 Blood Urea Nitrogen 11 12 Creatinine 0.89 0.87 Estimat Glomerular Filtration 87 89 Rate Random Glucose 88 119 Lactic Acid Level 2.0 Calcium Level 9.0 8.3 Magnesium Level 1.9 Total Bilirubin 0.2 0.2 Aspartate Amino Transf 18 15 (AST/SGOT) Alanine Aminotransferase 17 15 (ALT/SGPT) Alkaline Phosphatase 108 98 Total Creatine Kinase 67 Troponin I LESS THAN 0.02 B-Type Natriuretic Peptide 92 Total Protein 8.1 7.4 Albumin 3.3 2.9 Lipase 254 Blood Gas Puncture Site RT RADIAL Blood Gas Patient Temperature 98.6 Blood Gas HCO3 22 Blood Gas Base Excess -0.9 Blood Gas Oxygen Saturation 89 Arterial Blood pH 7.53 Arterial Blood Partial 26 Pressure CO2 Arterial Blood Partial 68 Pressure O2 Arterial Blood Oxygen Content 15.1 Arterial Blood 4.6 Carboxyhemoglobin Arterial Blood Methemoglobin 1.8 Blood Gas Hemoglobin 12.0 Oxygen Delivery Device ROOM AIR Blood Gas Inspired Oxygen 21 Nasal Screen MRSA (PCR) NEGATIVE Test 11/18/16 04:30 Urine Color LIGHT-YELLOW Urine Turbidity CLEAR Urine pH 6.0 Urine Specific [place] 1.019 Urine Protein NEG Urine Glucose (UA) NEG Urine Ketones NEG Urine Occult Blood NEG Urine Nitrite NEG Urine Bilirubin NEG Urine Urobilinogen LESS THAN 2.0 Urine Leukocyte Esterase NEG Urine RBC LESS THAN 1 Urine WBC 1 Microscopic Urinalysis Comment CULT NOT INDICATED Date/Time Procedure Status Source Growth 11/17/16 21:15 Aerobic Blood Culture - Preliminary Resulted Blood Peripheral NO GROWTH IN 1 DAY 11/17/16 21:15 Anaerobic Blood Culture - Preliminary Resulted Blood Peripheral NO GROWTH IN 1 DAY 11/17/16 21:05 Gram Stain - Final Resulted Wound Abdomen 11/17/16 21:05 Wound Culture - Preliminary Resulted Gram Negative Seng Result Diagram: 11/18/1641111/18/[address] Angiography 11/17/162133 Signed Impressions: Service Date/Time: Thursday, November 17, 2016 22:51 - CONCLUSION: 1. No evidence of pulmonary embolism. 2. Aneurysmal dilatation of the descending and descending thoracic aorta to 5.4 cm. 3. Left perihilar pneumonitis with findings of FERCHO in the lingula Enmanuel Cortez MD Chest X-Ray 11/17/162100 Signed Impressions: Service Date/Time: Thursday, November 17, 2016 21:21 - CONCLUSION: 1. Tracheostomy in satisfactory position. Minimal basilar dependent atelectasis. Juan Colin MD Assessment and Plan Assessment and Plan Pneumonitis: viral vs atypical PNA, less likely to be PCP. Aneursym of aorta in a young pt rule out syphilitic aortitis. HIV possible AIDS as patient on Bactrim for PCP prophylaxis per review of home meds. Off HAART: patient reports intolerance in the form of nausea and vomiting. PEG tube site tenderness. No overt signs of infection such as erythema. s/p trach reports he has Oropharyngeal cancer h/o neck radiation, chemotherapy. Immune compromised host. Recs: No HAART for now as patient off meds for 1 week and intolerant. Genotype not known so cannot switch. No urgency to start new regimen. Continue Bactrim, follow CD4 count. Check RPR Check Hepatitis panel Check HIV viral load Check urine legionella antigen Check strep pneumo antigen Continue Ceftriaxone IV Continue Azithro IV (once procedures completed ok to change to oral azithro) Consult GI (address PEG tube continuing need and removal) Consult Pulm (abnormal CT chest ? FERCHO given AIDS. d.w about bronchoscopy to further evaluate) Consult ENT (d.w : he recommends consult ENT to see if laryngoscopy needed to assess if subglottic stenosis given h/o surgery and radiation and if appropriate to remove trach upon patient request) Request medical records from [facility]. D/w , , clinical pharmacist Don and RN for patient. [email or web address] patient and significant other in room. He was very unpleasant to talk to and extremely disrespectful. Tried to diffuse situation and provided recommendations. Patient tells me he does not have HIV and that his CD4 count is low from being "nuked while working in [employer]" When questioned about who prescribes HIV meds he says he has a blood doctor not an infection specialist and he does not have HIV. He repeated these statements at least 4 times during my stay making any discussions extremely difficult. Time spent in excess of 60 mins, called (his ID doctor at [facility]) with no response. Will try again. Denise Hernandez MD Nov 18, 2016 15:38
[2016-11-18] MEDS ORDERED: SULF1TAB23 PO (15:55)
[2016-11-18] MEDS ORDERED: MSIR15 PO (15:56)
[2016-11-18] MEDS ORDERED: ELVI1TAB3 PO (15:58)
[2016-11-18] MEDS ORDERED: DARU800T PO (15:58)
[2016-11-18] MEDS: DEXT 5%-NACL 0.45% 1000 ML INJ 1,000 ML IV SCH (21:00)
[2016-11-18 21:53] LABS: AUTOMATED NEUTROPHIL # 4.6 TH/MM3 (1.8-7.7); BASOPHIL % 0.5 % (0.0-2.0); EOSINOPHIL # 0.1 TH/MM3 (0-0.4); EOSINOPHIL % 0.9 % (0.0-4.0); HEMATOCRIT 31.6 % (39.0-51.0); HEMO FLAGS DIFF FINAL; LYMPHOCYTE # 1.4 TH/MM3 (1.0-4.8); MEAN CELL VOLUME 99.3 FL (80.0-100.0); MEAN CORPUSCULAR HEMOGLOBIN 35.6 PG (27.0-34.0); MEAN CORPUSCULAR HGB CONC 35.9 % (32.0-36.0); MONO % 9.4 % (0.0-8.0); NEUT % 68.2 % (16.0-70.0); PLATELET COUNT 170 TH/MM3 (150-450); RED BLOOD COUNT 3.18 MIL/MM3 (4.50-5.90); RED CELL DISTRIBUTION WIDTH 12.7 % (11.6-17.2); WHITE BLOOD COUNT 6.7 TH/MM3 (4.0-11.0)
[2016-11-18 22:15] LABS: APTT (PATIENT) 26.6 SEC (24.3-30.1); PROTHROMBIN TIME - PATIENT 10.8 SEC (9.8-11.6)
[2016-11-19] VITALS (12 sets, daily range): BP systolic 116–135; BP diastolic 59–82; PULSE 60–81; RESP 11–24; TEMP 98.3–98.6; O2SAT 95–99
[2016-11-19] MEDS: AZITHROMYCIN INJ 500 MG in SODIUM CHLOR 0.9% 250 ML INJ 250 ML IV SCH (00:04)
[2016-11-19] MEDS: cefTRIAXone INJ 1,000 MG in SODIUM CHLORIDE 0.9% INJ 100 ML IV SCH (00:04)
[2016-11-19] MEDS: ACETAMINOPHEN/HYDROcodone 325 MG/5 MG TAB PO PRN ×2 (00:05→19:54)
[2016-11-19] MEDS: CHLORHEXIDINE GLUCONATE 2 % 1 PACK (2 CLOTHS) TOP SCH (04:00)
--- NOTE | 2016-11-19 08:22 | MB ---
cc: PEPITO KENT MD DATE OF CONSULTATION November 19, 2016 HISTORY OF PRESENT ILLNESS A 61-year-old male known to me from a previous laryngeal biopsy with throat cancer. He is status post a tracheostomy by Dr. Loyola on May 16. During Dr. Loyola's tracheostomy surgery, I also performed a direct laryngoscopy with a biopsy that revealed a positive squamous cell carcinoma. Again the diagnosis was on May 16. The patient was subsequently treated with chemoradiation therapy completing therapy the first week of September. 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 The patient has not followed up with Dr. Loyola for his tracheostomy nor has he followed up with me for his throat cancer surveillance. He has been treated at the [facility] in [place]. I have no recent notes from them in my office so I am not sure the last time he was seen there. The patient also has a complicated history of previous DVTs more than 10 years ago as well as a pulmonary embolism in May of 2016 at the time of his diagnosis for cancer. He also has a history of HIV which was first diagnosed in 2007. [facility]; however, I am not sure if he is taking those currently. The patient is coming into the hospital with multiple medical problems but continues to be angry that he has a tracheostomy in place and would like it removed. However, he has once again not followed up with his surgeon who placed the tracheostomy and has not cared for his tracheostomy very well. At this time the patient is sitting comfortably in bed and resting and breathing comfortably through the tracheostomy. PAST MEDICAL HISTORY Significant for - 1. 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 Loyola as well as a PEG tube as well as a direct laryngoscopy with biopsy by myself, Dr. Kent. 2. Bipolar disorder. 3. PTSD. 4. Complicated history with blood clotting. PAST SURGICAL HISTORY Significant as above. ALLERGIES He has no known drug allergies. SOCIAL HISTORY Significant ethanol abuse and tobacco abuse. PHYSICAL EXAMINATION GENERAL: The patient is alert and oriented x 3, in no acute stress. VITAL SIGNS: Afebrile. Vital signs stable. HEENT/NECK: Exam reveals tracheostomy in place with crusting in both the inner and outer cannula. There is still a stitch in the flange of the tracheostomy from the surgeon who placed it demonstrating the patient has not been following up with his surgeon. The patient is unable to tolerate a Passy-Nae valve when it is placed. He gets short of breath relatively quickly. At this time a flexible laryngoscopy is performed at bedside, revealed significant laryngeal edema consistent with recently completed radiation and chemotherapy for a large squamous cell carcinoma of the epiglottis. Unable to see the tracheostomy through the larynx. Heart Exam: Regular rate and rhythm. Lungs: Clear to auscultation bilaterally. 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 RECOMMENDATIONS My recommendations is that he continue to follow up with his cancer care as he has been instructed to include continued routine surveillance of his larynx with monthly ENT exams as well as to follow up with his surgeon who placed his tracheostomy for planned decannulation. However, at this point in time, having just recently completed his therapy, I do not recommend the patient be decannulated. He should continue to be followed as the laryngeal edema can take anywhere from 6 months to a year to resolve. At this time my recommendation is that he should be more diligent with his own trache care. He may require some additional teaching from respiratory therapy for this and should follow up with routine visits with his oncologist as well to be evaluated for possible recurrences as recurrent disease is very high in the first six months after treatment for such a large cancer. Otherwise he has been instructed by me that he should follow up in my office once he is discharged so we can continue his routine cancer surveillance. Pepito ASTUDILLO/SSB /8:00 AM /8:10 AM
--- NOTE | 2016-11-19 11:35 | PD.CONS ---
HPI History of Present Illness This is a 61 year old male who was diagnosed with laryngeal cancer, squamous cell carcinoma in May of 2016, at which time he had a tracheostomy and a PEG tube placed. He completed chemoradiation in September of 2016. The patient reports that during treatment, he lost ~40 lbs and was requiring the use of his PEG tube placement. However, since he completed treatment, he has not used his PEG tube, is eating without difficulty- no problems swallowing. He denies any issues with nausea, vomiting, abdominal pain, constipation, or diarrhea. He does note that he has had some purulent drainage from the site from the G tube site for the past month and a half. He states that the site is tender. He would like this removed, but states he will have to be "put to sleep" to have it removed because he has "already been through so much." According to the records, the patient had Woo-Gozam at [facility]. Prior to that, he was seen by our service had an EGD (08/08/14) irregular Z line, normal EGD otherwise , 3 cm hiatal hernia, mild gastritis in the gastric antrum, retroflexed views revealed no abnormalities, Colonoscopy with polypectomy (08/24/14) sessile polyp in the ascending colon, diverticula, scattered in the sigmoid colon, normal colon otherwise. Pathology tubular adenoma. (Janeen Jones) PFSH Past Medical History Laryngeal squamous cell carcinoma HIV (Unknown CD4) Bipolar Disorder PTSD Hx CVA COPD Hx Dysphagia Past Surgical History Tracheostomy PEG Tube Colonoscopy (Janeen Jones) Coded Allergies: No Known Allergies (Verified , 11/17/16) Medications Allergies Coded Allergies Type Severity Reaction Last Updated Verified No Known Allergies 11/17/16 Yes Active Scripts Medications Dose Route/Sig Days Date Category Morphine IR (Morphine Sulfate) 15 Mg Tab 15 Mg PO Q12HR PRN 11/18/16 Reported Family History Noncontributory Social History Reportedly daily alcohol and tobacco. Negative for drugs. (Janeen Jones) Review of Systems Constitutional: COMPLAINS OF: Weight gain, Weight loss, DENIES: Fatigue, Change in appetite Respiratory: COMPLAINS OF: Cough, DENIES: Shortness of breath Gastrointestinal: COMPLAINS OF: Abdominal pain (tenderness at site), DENIES: Constipation, Diarrhea, Nausea, Vomiting, Difficulty Swallowing, Anorexia, Odynophagia, Swelling of Abdomen, Heartburn, Hematemesis Musculoskeletal: DENIES: Joint pain Integumentary: DENIES: Abnormal pigmentation Neurologic: DENIES: Headache Psychiatric: COMPLAINS OF: Mood changes, DENIES: Confusion (RobertJaneen Naranjo MARGIE) GI Exam Vitals I&O Vital Signs Date Time Temp Pulse Resp B/P Pulse Ox O2 Delivery O2 Flow Rate FiO2 11/19/16 09:35 99 Trach Collar 21 11/19/16 08:40 97 Room Air 11/19/16 08:00 98.4 63 20 116/65 97 11/19/16 06:00 74 11/19/16 04:00 68 11/19/16 04:00 98.3 68 11 135/79 96 11/19/16 02:00 74 11/19/16 00:00 76 11/19/16 00:00 98.5 76 13 135/79 95 11/18/16 20:00 98.1 76 22 138/80 99 11/18/16 20:00 76 11/18/16 20:00 99 Room Air 11/18/16 19:42 98 21 11/18/16 18:00 94 11/18/16 16:00 98.4 73 16 136/84 97 11/18/16 16:00 73 11/18/16 14:00 83 11/18/16 12:00 98.6 79 21 119/73 98 11/18/16 12:00 76 I/O 11/18/16 11/18/16 11/18/16 11/19/16 11/19/16 11/19/16 07:00 15:00 23:00 07:00 15:00 23:00 Intake Total 629 ml 1788 ml 420 ml 240 ml Output Total 300 ml 400 ml 1100 ml Balance 629 ml 1488 ml 20 ml -860 ml Intake Oral 1360 ml 420 ml 240 ml IV Total 629 ml 428 ml Output Urine Total 300 ml 400 ml 1100 ml # Voids 2 # Bowel Movements 0 0 [address] Angiography 11/17/161 Signed Impressions: Service Date/Time: Thursday, November 17, 2016 22:51 - CONCLUSION: 1. No evidence of pulmonary embolism. 2. Aneurysmal dilatation of the descending and descending thoracic aorta to 5.4 cm. 3. Left perihilar pneumonitis with findings of FERCHO in the lingula Enmanuel Cortez MD Chest X-Ray 11/17/162100 Signed Impressions: Service Date/Time: Thursday, November 17, 2016 21:21 - CONCLUSION: 1. Tracheostomy in satisfactory position. Minimal basilar dependent atelectasis. Juan Colin MD Laboratory Test 11/18/16 11/19/16 20:50 05:07 White Blood Count 6.7 TH/MM3 Red Blood Count 3.18 MIL/MM3 Hemoglobin 11.3 GM/DL Hematocrit 31.6 % Mean Corpuscular Volume 99.3 FL Mean Corpuscular Hemoglobin 35.6 PG Mean Corpuscular Hemoglobin 35.9 % Concent Red Cell Distribution Width 12.7 % Platelet Count 170 TH/MM3 Mean Platelet Volume 8.7 FL Neutrophils (%) (Auto) 68.2 % Lymphocytes (%) (Auto) 21.0 % Monocytes (%) (Auto) 9.4 % Eosinophils (%) (Auto) 0.9 % Basophils (%) (Auto) 0.5 % Neutrophils # (Auto) 4.6 TH/MM3 Lymphocytes # (Auto) 1.4 TH/MM3 Monocytes # (Auto) 0.6 TH/MM3 Eosinophils # (Auto) 0.1 TH/MM3 Basophils # (Auto) 0.0 TH/MM3 CBC Comment DIFF FINAL Differential Comment Prothrombin Time 10.8 SEC Prothromb Time International 1.0 RATIO Ratio Activated Partial 26.6 SEC Thromboplast Time Rapid Plasma Reagin NON-REACTIVE Date/Time Procedure Status Source Growth 11/18/16 19:05 Mycobacterial Culture Received Blood Peripheral Pending 11/18/16 16:50 Legionella Antigen - Final Complete Urine Clean Catch PRESUMPTIVE NEGATIVE FOR LEGIONELLA P... 11/18/16 16:50 Streptococcus pneumoniae Antigen (M - Final Complete Urine Clean Catch PRESUMPTIVE NEGATIVE FOR STREPTOCOCCU... 11/17/16 21:15 Aerobic Blood Culture - Preliminary Resulted Blood Peripheral NO GROWTH IN 2 DAYS 11/17/16 21:15 Anaerobic Blood Culture - Preliminary Resulted Blood Peripheral NO GROWTH IN 2 DAYS 11/17/16 21:05 Gram Stain - Final Complete Wound Abdomen 11/17/16 21:05 Wound Culture - Final Complete Pseudomonas Aeruginosa Physical Examination HEENT: Normocephalic; atraumatic; no jaundice. Tracheostomy CHEST: CTA CARDIAC: RRR ABDOMEN: Soft, nondistended, nontender; no hepatosplenomegaly; bowel sounds are present in all four quadrants. PEG tube site with small amount of purulent drainage EXTREMITIES: No clubbing, cyanosis, or edema. SKIN: Normal; no rash; no jaundice. NURSERY LABORER: No focal deficits; alert and oriented times three. (Janeen Jones) Assessment and Plan Plan ASSESSMENT: - Hx dysphagia. Dx with squamous cell carcinoma laryngeal cancer in May of 2016, at which time he had a tracheostomy (Rasmussin) and a PEG tube (Woo-Gozam) at [facility]. He completed chemoradiation in September of 2016. ~40 lb wt loss during treatment, but states since completing tx he has not used the PEG tube and has regained 35 lbs. Currently eating well with no difficulty swallowing, decreased appetite, or n/v. He would like this removed, but states he will need to be sedated. However, according to ENT, he has not followed up with any of his physicians and recommended against removal of the tracheostomy because of swelling and also until seen by his physicians. Concern that if he did require further treatment, he may need the PEG again. Pt became upset and states he wants to have it removed and wants it done with anesthesia. - PEG tube site infection. Some purulent drainage and tenderness at site. Pt states it has been like that for 1.5 months. - Pneumonitis, per ID. Getting bronchoscopy today. - AAA, 5.4 cm - HIV per ID - Hx of laryngeal cancer. PLAN: - NPO for bronchoscopy - PEG tube site drainage for GS, C/S - Further recommendations to follow after evaluated by Dr. Dimas (Janeen Jones) Physician Comments seen, examined agree with above he would like to have his peg removed under anesthesia, he was hoping today during bronchoscopy , we will ask pulmonary if possible if not we will have to reevaluate (Leslee Dimas MD) Janeen Jones Nov 19, 2016 11:35 Leslee Dimas MD Nov 19, 2016 16:55
[2016-11-19] MEDS: MORPHINE SULFATE 4 MG/ML INJ IV PRN (14:58)
--- NOTE | 2016-11-19 16:30 | HHI.PR ---
Subjective Remarks Follow-up for pneumonitis. Patient denies any fevers or chills. He is asking if he can have tracheostomy and PEG tube removed. He feels like his PEG tube is infected. Chap[place] for bronchoscopy today. He states that he already be cancer and HIV. Objective Vitals Vital Signs Date Time Temp Pulse Resp B/P Pulse Ox O2 Delivery O2 Flow Rate FiO2 11/19/16 13:33 60 11/19/16 12:00 98.6 63 17 126/76 97 11/19/16 09:35 99 Trach Collar 21 11/19/16 08:40 97 Room Air 11/19/16 08:00 98.4 63 20 116/65 97 11/19/16 06:00 74 11/19/16 04:00 68 11/19/16 04:00 98.3 68 11 135/79 96 11/19/16 02:00 74 11/19/16 00:00 76 11/19/16 00:00 98.5 76 13 135/79 95 11/18/16 20:00 98.1 76 22 138/80 99 11/18/16 20:00 76 11/18/16 20:00 99 Room Air 11/18/16 19:42 98 21 11/18/16 18:00 94 I/O 11/18/16 11/18/16 11/18/16 11/19/16 11/19/16 11/19/16 07:00 15:00 23:00 07:00 15:00 23:00 Intake Total 629 ml 1788 ml 420 ml 240 ml Output Total 300 ml 400 ml 1100 ml Balance 629 ml 1488 ml 20 ml -860 ml Intake Oral 1360 ml 420 ml 240 ml IV Total 629 ml 428 ml Output Urine Total 300 ml 400 ml 1100 ml # Voids 2 # Bowel Movements 0 0 0 Result Diagram: 11/18/16204911/18/[address] Angiography 11/17/162133 Signed Impressions: Service Date/Time: Thursday, November 17, 2016 22:51 - CONCLUSION: 1. No evidence of pulmonary embolism. 2. Aneurysmal dilatation of the descending and descending thoracic aorta to 5.4 cm. 3. Left perihilar pneumonitis with findings of FERCHO in the lingula Enmanuel Cortez MD Chest X-Ray 11/17/162100 Signed Impressions: Service Date/Time: Thursday, November 17, 2016 21:21 - CONCLUSION: 1. Tracheostomy in satisfactory position. Minimal basilar dependent atelectasis. Juan Colin MD Objective Remarks GENERAL: Well-developed well-nourished. In no acute distress. SKIN: Warm and dry. No lesions noted. HEENT: Normocephalic. Pupils equal and round. Mucous membranes pink and moist. Tracheostomy in place. CARDIOVASCULAR: Regular rate and rhythm. No murmur appreciated. RESPIRATORY: No accessory muscle use. Clear to auscultation. Breath sounds equal bilaterally. GASTROINTESTINAL: Abdomen soft, non-tender, nondistended. Bowel sounds x4. PEG tube in place with very mild surrounding erythema and some crusting. MUSCULOSKELETAL: No obvious deformities. No clubbing or cyanosis. No edema. NEUROLOGICAL: Awake and alert. No focal neurological deficits. Moves upper and lower extremities spontaneously. Normal speech. PSYCHIATRIC: Appropriate mood and affect; insight and judgment normal. A/P Problem List: (1) Pneumonitis ICD Code: J18.9 Status: Acute (2) Hypoxia ICD Code: R09.02 Status: Acute (3) FERCHO (mycobacterium avium-intracellulare) ICD Code: A31.0 Status: Acute (4) HIV (human immunodeficiency virus infection) ICD Code: Z21 Status: Acute (5) Tracheostomy present ICD Code: Z93.0 Status: Acute Assessment and Plan 61-year-old male with a PMH of Throat CA s/p Tracheostomy/PEG Tube Placement, HIV, Bipolar Disorder, PTSD, h/o CVA and COPD who presented w/ complaints of SOB x2 months Pneumonitis: c/o SOB x1-2 months, now progressively worse. Concern for FERCHO with history of HIV. Images reviewed: CXR w/ minimal basilar atelectasis. CTA Pulm negative for PE , aneurysmal dilatation of descending thoracic aorta, left perihilar pneumonitis with findings of FERCHO in the lingula. Labs reviewed: Blood cultures with no growth 2 days. Urinary antigens negative. ABG with alkalosis and hypoxia. -Continue IV azithromycin and ceftriaxone, appreciate ID input -Mycobacteria culture pending -Pulmonology consulted, planning on bronchoscopy -O2 and nebs as needed History of HIV: Questionable compliance. Lymphocyte panel pending. ID on board. Continue Bactrim. History of throat cancer: S/P tracheostomy and PEG tube placement. ENT consulted, recommended leaving tracheostomy in place for 6 months to 1 year after cancer treatment, continue outpatient ENT follow-up. PEG tube infection: PEG tube site growing pseudomonas. Continue antibiotics. GI and ID on board. Appreciate specialist input. DVT Prophylaxis: SCD/Teds. Written by Gomez Bajwa, acting as scribe for Dr. Thapa on 11/19/16 at 16:30. The documentation accurately reflects the work performed [id number] by ma on at 1630. Discharge Planning Disposition pending clinical course. Likely transfer to medical floor if the patient is stable after bronchoscopy. Gomez Bajwa Nov 19, 2016 4:30 pm Saran Thapa DO Nov 19, 2016 4:48 pm
[2016-11-19] MEDS ORDERED: LIDOCAINE HCL 2% 50 ML VIAL ONE (17:13)
[2016-11-19] MEDS ORDERED: EPINEPHrine HCL (1:1000) 1 MG/ML VIAL ONE (17:13)
--- NOTE | 2016-11-19 20:30 | HHI.PR ---
Subjective Remarks Bronch cancelled since OR was over booked. He is feeling OK. Less cough and no fever. Objective Vital Signs Date Time Temp Pulse Resp B/P Pulse Ox O2 Delivery O2 Flow Rate FiO2 11/19/16 19:00 Room Air 11/19/16 16:30 98.5 81 22 124/82 99 11/19/16 16:29 20 11/19/16 13:33 60 11/19/16 12:00 98.6 63 17 126/76 97 11/19/16 09:35 99 Trach Collar 21 11/19/16 08:40 97 Room Air 11/19/16 08:00 98.4 63 20 116/65 97 11/19/16 06:00 74 11/19/16 04:00 68 11/19/16 04:00 98.3 68 11 135/79 96 11/19/16 02:00 74 11/19/16 00:00 76 11/19/16 00:00 98.5 76 13 135/79 95 I/O 11/18/16 11/18/16 11/18/16 11/19/16 11/19/16 11/19/16 07:00 15:00 23:00 07:00 15:00 23:00 Intake Total 629 ml 1788 ml 420 ml 240 ml Output Total 300 ml 400 ml 1100 ml Balance 629 ml 1488 ml 20 ml -860 ml Intake Oral 1360 ml 420 ml 240 ml IV Total 629 ml 428 ml Output Urine Total 300 ml 400 ml 1100 ml # Voids 2 4 # Bowel Movements 0 0 0 Result Diagram: 11/18/16204911/18/16411 Objective Remarks GENERAL: This is a well-nourished, well-developed patient, in no apparent distress.Trach tube in neck. CARDIOVASCULAR: Regular rate and rhythm without murmurs, gallops, or rubs. RESPIRATORY: Diffuse expiratory wheezes, diminish breath sounds bilaterally. GASTROINTESTINAL: Abdomen soft, non-tender,nondistended. Normal active bowel sounds MUSCULOSKELETAL: Extremities without clubbing, cyanosis, or edema. NEURO: Alert & Oriented x4 to person, place, time, situation. Moves all ext x4 Assessment and Plan Assessment and Plan Septic Shock Reassessment Septic Shock Reassessment Assessment and Plan Assessment and Plan Problem List: (1) Pneumonitis ICD Code: J18.9 Status: Acute (2) Hypoxia ICD Code: R09.02 Status: Acute (3) FERCHO (mycobacterium avium-intracellulare) ICD Code: A31.0 Status: Acute (4) HIV (human immunodeficiency virus infection) ICD Code: Z21 Status: Acute (5) Tracheostomy present Plan : 1. Cont Antibiotics per ID. 2. Nebs qid , duoneb. 3. Trach Care and suction prn. 4. Bronchoscopy in am. Keep NPO after Midnight. Matilde Mckeon MD Nov 19, 2016 20:30
[2016-11-19] MEDS: DEXT 5%-NACL 0.45% 1000 ML INJ 1,000 ML IV SCH (21:00)
[2016-11-19] MEDS: SODIUM CHLORIDE 0.9% FLUSH 5 ML FLUSH FLUSH SCH (21:00)
[2016-11-19 23:51] LABS: CD 19 PERCENT 2 % (6-29); CD3 ABSOLUTE 406 (840-3060); CD4/CD8 RATIO 0.1 (0.86-5.00); CD8 ABSOLUTE 367 (180-1170); LYMPHOCYTES, ABSOLUTE 712 (850-3900)
[2016-11-20] VITALS (13 sets, daily range): BP systolic 117–130; BP diastolic 62–73; PULSE 64–89; RESP 11–20; TEMP 98.1–98.7; O2SAT 95–99
[2016-11-20] MEDS: AZITHROMYCIN INJ 500 MG in SODIUM CHLOR 0.9% 250 ML INJ 250 ML IV SCH ×2 (00:25→23:53)
[2016-11-20] MEDS: cefTRIAXone INJ 1,000 MG in SODIUM CHLORIDE 0.9% INJ 100 ML IV SCH ×2 (00:26→23:08)
[2016-11-20] MEDS: ACETAMINOPHEN/HYDROcodone 325 MG/5 MG TAB PO PRN ×3 (00:34→19:43)
[2016-11-20] MEDS: CHLORHEXIDINE GLUCONATE 2 % 1 PACK (2 CLOTHS) TOP SCH (04:50)
--- NOTE | 2016-11-20 08:48 | HHI.GIFU ---
Subjective Remarks Resting in bed. Nurse reports he is going to OR at 11am for bronchoscopy. No n /v/abdominal pain Objective Vitals I&O Vital Signs Date Time Temp Pulse Resp B/P Pulse Ox O2 Delivery O2 Flow Rate FiO2 11/20/16 06:00 64 11/20/16 04:00 98.6 68 16 128/66 97 11/20/16 04:00 68 11/20/16 02:00 68 11/20/16 00:00 98.4 68 18 130/71 99 11/20/16 00:00 68 11/19/16 22:00 70 11/19/16 20:00 76 11/19/16 20:00 98.3 76 24 122/59 99 11/19/16 19:55 96 21 11/19/16 19:00 Room Air 11/19/16 16:30 98.5 81 22 124/82 99 11/19/16 16:29 20 11/19/16 13:33 60 11/19/16 12:00 98.6 63 17 126/76 97 11/19/16 09:35 99 Trach Collar 21 I/O 11/19/16 11/19/16 11/19/16 11/20/16 11/20/16 11/20/16 07:00 15:00 23:00 07:00 15:00 23:00 Intake Total 240 ml 812 ml 448 ml Output Total 1100 ml 800 ml Balance -860 ml 812 ml -352 ml Intake Oral 240 ml 500 ml 120 ml IV Total 312 ml 328 ml Output Urine Total 1100 ml 800 ml # Voids 8 3 # Bowel Movements 0 0 0 Laboratory Date/Time Procedure Status Source Growth 11/18/16 19:05 Mycobacterial Culture Received Blood Peripheral Pending 11/18/16 16:50 Legionella Antigen - Final Complete Urine Clean Catch PRESUMPTIVE NEGATIVE FOR LEGIONELLA P... 11/18/16 16:50 Streptococcus pneumoniae Antigen (M - Final Complete Urine Clean Catch PRESUMPTIVE NEGATIVE FOR STREPTOCOCCU... 11/17/16 21:15 Aerobic Blood Culture - Preliminary Resulted Blood Peripheral NO GROWTH IN 2 DAYS 11/17/16 21:15 Anaerobic Blood Culture - Preliminary Resulted Blood Peripheral NO GROWTH IN 2 DAYS 11/17/16 21:05 Gram Stain - Final Complete Wound Abdomen 11/17/16 21:05 Wound Culture - Final Complete Pseudomonas Aeruginosa Imaging Last Impressions CT Angiography 11/17/162133 Signed Impressions: Service Date/Time: Thursday, November 17, 2016 22:51 - CONCLUSION: 1. No evidence of pulmonary embolism. 2. Aneurysmal dilatation of the descending and descending thoracic aorta to 5.4 cm. 3. Left perihilar pneumonitis with findings of FERCHO in the lingula Enmanuel Cortez MD Chest X-Ray 11/17/162100 Signed Impressions: Service Date/Time: Thursday, November 17, 2016 21:21 - CONCLUSION: 1. Tracheostomy in satisfactory position. Minimal basilar dependent atelectasis. Juan Colin MD Physical Exam HEENT: Normocephalic; atraumatic; no jaundice. CHEST: CTA, tracheostomy CARDIAC: RRR ABDOMEN: Soft, nondistended, nontender; no hepatosplenomegaly; bowel sounds are present in all four quadrants. PEG tube site with small amount purulent drainage, tenderness EXTREMITIES: No clubbing, cyanosis, or edema. SKIN: Normal; no rash; no jaundice. SUPERVISOR GLUING: No focal deficits; alert and oriented times three. Assessment and Plan Plan ASSESSMENT: - Hx dysphagia. 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 He completed chemoradiation in September of 2016. ~40 lb wt loss during treatment, but states since completing tx he has not used the PEG tube and has regained 35 lbs. Currently eating well with no difficulty swallowing, decreased appetite, or n/v. He would like this removed, but states he will need to be sedated. However, according to ENT, he has not followed up with any of his physicians and recommended against removal of the tracheostomy because of swelling and also until seen by his physicians. Pt wants to have his PEG removed, but wants it done with anesthesia. He is scheduled for bronchoscopy at 11am, will see if they can pull it at that time. - PEG tube site infection. Some purulent drainage and tenderness at site. Pt states it has been like that for 1.5 months. Cx ordered - Pneumonitis, per ID. Getting bronchoscopy today- 11am in or. - AAA, 5.4 cm - HIV per ID - Hx of laryngeal cancer. PLAN: - NPO for bronchoscopy - PEG tube site drainage for GS, C/S - Will see if PEG can be pulled at same time as bronchoscopy - Further recommendations to follow after evaluated by Dr. Dimas ADDENDUM: 1305, PEG tube removed without difficulty while still under anesthesia in OR. Tolerated well Janeen Jnoes Nov 20, 2016 08:48
[2016-11-20] MEDS: SODIUM CHLORIDE 0.9% FLUSH 5 ML FLUSH FLUSH SCH ×2 (08:58→19:44)
[2016-11-20] MEDS: SULFAMETHOXAZOLE-TRIMETHOPRIM DS 800-160 MG TAB PO SCH (08:58)
--- NOTE | 2016-11-20 10:04 | MB ---
cc: SABRINA MEJÍA DATE OF CONSULTATION 11/18/2016 REASON FOR CONSULTATION Pneumonia and immunocompromised state in a patient with tracheostomy. HISTORY OF THE PRESENT ILLNESS This is a 61-year-old white male with a prior history of carcinoma of the larynx status post tracheostomy and PEG tube placement and previous history of HIV disease and bipolar disorder with PTSD was admitted through the ER for shortness of breath and wheezing. The patient apparently has been short of breath for over a month and he has a cough. He has been eating regular food even though he had a PEG tube in place that was placed at [facility]. He also had a PEG tube in place since this past year and has received radiation therapy for his throat cancer. The patient also wanted his PEG tube discontinued but upon admission the patient apparently had a CTA of the chest which demonstrated no pulmonary emboli but had a descending aortic aneurysm as well as pneumonia in the left perihilar region. Further cultures from the sputum and trache are pending. He denies any hemoptysis but has had some low grade fevers and the patient's HIV disease is being monitored at the HIV clinic but not on any active therapy at this point. The CT chest also demonstrated evidence of bronchiectasis in tree-in-bud appearance suggestive of atypical mycobacterial infection. PAST MEDICAL HISTORY The past history has included: 1. HIV disease. 2. Status post tracheostomy for laryngeal carcinoma and radiation therapy. 3. PEG tube placement. 4. History of posttraumatic stress disorder. 5. History of CVA. 6. Bipolar disorder. 7. He has had Kuxkhb-H-[id number] placed and removed in the past. MEDICATIONS List included: 1. Prezista. 2. Genvoya (which is elvitegravir, cobicistat, emtricitabine, tenofovir) 150/150/200/10 milligrams tablets daily. 3. Morphine as needed. 4. Bactrim one twice a day as needed. SOCIAL HISTORY Habits, the patient has a prior history of smoking for over 20 years about a pack per day. Alcohol use quite regular in the past. FAMILY HISTORY Noncontributory. REVIEW OF SYSTEMS Patient has lost weight. He has hoarseness and he has wheezing and cough. He has epigastric distress. Denies leg swelling or skin lesions. He has anxiety, depression and history of aggressive behavior. PHYSICAL EXAMINATION GENERAL: This is a well built, middle-aged white male in no acute distress. VITAL SIGNS: Blood pressure 112/60, pulse is 90, respiratory rate 22, temperature 98.5. HEENT: Head is normocephalic. Pupils are reactive and equal. Tongue is moist. Throat is clear. NECK: There is a trache tube in place with no inflammation surrounding it. Whitish secretions from the trache. No lymphadenopathy. CHEST: Equal movements with occasional expiratory wheeze throughout both lungs dawkins. No crackles on either side. HEART: The heart sounds are regular S1-S2. No murmur. No S3. ABDOMEN: Soft. Scaphoid without masses. No organomegaly or tenderness. Bowel sounds are active. EXTREMITIES: No edema. Mild varicosities. No gross motor deficits. NEUROLOGICAL: Cranial nerves are grossly intact. RECTAL: Examination is deferred. SKIN: No lesions. IMPRESSION 1. Perihilar pneumonia with immunocompromised state, rule out PCP. 2. History of HIV disease. 3. Aneurysm of the ascending aorta. 4. COPD. 5. History of laryngeal cancer with a tracheostomy tube placement. 6. Depression and anxiety. PLAN The patient was advised that a bronchoscopy will be scheduled to evaluate the pulmonary infiltrates and to get cultures and bronchial washings to evaluate him for PCP and/or atypical mycobacterial infection. Nebulized DuoNeb solution will be added q.i.d. and oxygen supplementation at 2 liters nasal cannula and aerosol for the trache in case he has thick secretions. The antibiotic therapy is being managed by Dr. Hernandez and I have discussed with her the same. The patient will be kept n.p.o. in the a.m. and a coagulation profile ordered as well. I will follow the case with you Dr. Hernandez. Thank you for this consultation. MD MICHELLE Mckeon/ALDO /8:34 PM /9:58 AM
[2016-11-20] MEDS ORDERED: PROPOFOL 200 MG/20 ML AMP IV ONE (12:00)
[2016-11-20] MEDS ORDERED: MIDAZOLAM HCL 2 MG/2 ML VIAL ONE (12:24)
[2016-11-20] MEDS ORDERED: LIDOCAINE HCL 2% 50 ML VIAL E-TRACHE ONE (12:52)
--- NOTE | 2016-11-20 13:58 | RADRPT ---
EXAM DATE/TIME: 11/20/2016 13:29 [facility] COMPARISON: CHEST SINGLE AP, November 17, 2016, 21:21. INDICATIONS : Post bronchoscopy. MEDICAL HISTORY : Gastroesophageal reflux disease. Chronic obstructive pulmonary disease. HIV. CVA. Throat cancer. SURGICAL HISTORY : None. ENCOUNTER: Initial ACUITY: 1 day PAIN SCORE: 110 LOCATION: Bilateral chest FINDINGS: 2 AP portable erect views of the chest were obtained and demonstrate no evidence of a pneumothorax. T he tracheostomy tube remains in place. There are no confluent infiltrates or effusions. The heart siz e is within normal limits with no perihilar edema. There are multiple overlying electrocardiogram tamanna ds. CONCLUSION: No acute disease. Romario Clarke MD on November 20, 2016 at 13:55 Board Certified Radiologist. This report was verified electronically.
[2016-11-20] MEDS: DEXT 5%-NACL 0.45% 1000 ML INJ 1,000 ML IV SCH (19:44)
--- NOTE | 2016-11-20 20:35 | HHI.PR ---
Subjective Remarks Follow-up for pneumonitis, cancer of epiglottis s/p chemoradiation, s/p trach, s /p PEG tube. Mr. Winston is accompanied by his fiance. Mr. Winston reports no fever , chills. In the mornings, he sometimes have mild respiratory difficulties. He is waiting for bronchoscopy today and PEG tube will likely be removed during bronch as well. Tolerating diet well. Objective Vitals Vital Signs Date Time Temp Pulse Resp B/P Pulse Ox O2 Delivery O2 Flow Rate FiO2 11/20/16 19:00 Room Air 11/20/16 18:00 89 11/20/16 16:00 77 11/20/16 16:00 98.4 77 18 117/62 95 11/20/16 14:00 74 11/20/16 14:00 11/20/16 13:45 98 22 128/78 99 Room Air 11/20/16 13:30 99 20 120/83 99 Room Air 11/20/16 13:20 98.2 89 14 121/87 99 Room Air 11/20/16 10:00 64 11/20/16 09:35 99 21 11/20/16 08:00 98.7 64 11 119/63 96 11/20/16 08:00 64 11/20/16 07:00 Room Air 11/20/16 06:00 64 11/20/16 04:00 98.6 68 16 128/66 97 11/20/16 04:00 68 11/20/16 02:00 68 11/20/16 00:00 98.4 68 18 130/71 99 11/20/16 00:00 68 11/19/16 22:00 70 I/O 11/19/16 11/19/16 11/19/16 11/20/16 11/20/16 11/20/16 07:00 15:00 23:00 07:00 15:00 23:00 Intake Total 240 ml 812 ml 448 ml 1450 ml Output Total 1100 ml 800 ml 575 ml Balance -860 ml 812 ml -352 ml 875 ml Intake Oral 240 ml 500 ml 120 ml 0 ml IV Total 312 ml 328 ml 550 ml Other 900 ml Output Urine Total 1100 ml 800 ml 575 ml # Voids 8 3 2 # Bowel Movements 0 0 0 0 Result Diagram: 11/18/16204911/18/16411 Imaging Last Impressions Chest X-Ray 11/20/16 0000 Signed Impressions: Service Date/Time: Sunday, November 20, 2016 13:29 - CONCLUSION: No acute disease. Romario Clarke MD CT Angiography 11/17/16 2134 Signed Impressions: Service Date/Time: Thursday, November 17, 2016 22:51 - CONCLUSION: 1. No evidence of pulmonary embolism. 2. Aneurysmal dilatation of the descending and descending thoracic aorta to 5.4 cm. 3. Left perihilar pneumonitis with findings of FERCHO in the lingula Enmanuel Cortez MD Objective Remarks GENERAL: AOX3, NAD. SKIN: Warm and dry. HEAD: Normocephalic. EYES: No scleral icterus. No injection or drainage. NECK: Supple, trachea midline. No JVD or lymphadenopathy. CARDIOVASCULAR: Regular rate and rhythm without murmurs, gallops, or rubs. RESPIRATORY: Breath sounds equal bilaterally. No accessory muscle use. s/p trach. GASTROINTESTINAL: Abdomen soft, non-tender, nondistended. s/p PEG tube placement. Tender around the peg tube site. MUSCULOSKELETAL: No cyanosis, or edema. BACK: Nontender without obvious deformity. No CVA tenderness. Procedures Bronch, PEG tube removal 11/20/2016. A/P Problem List: (1) Pneumonitis ICD Code: J18.9 Status: Acute (2) Hypoxia ICD Code: R09.02 Status: Acute (3) FERCHO (mycobacterium avium-intracellulare) ICD Code: A31.0 Status: Acute (4) HIV (human immunodeficiency virus infection) ICD Code: Z21 Status: Acute (5) Tracheostomy present ICD Code: Z93.0 Status: Acute Assessment and Plan Mr. Winston is a 61-year-old male with a PMH of Throat CA s/p Tracheostomy/PEG Tube Placement, HIV, Bipolar Disorder, PTSD, h/o CVA and COPD who presented w/ complaints of SOB x2 months Pneumonitis: c/o SOB x1-2 months, now progressively worse. Concern for FERCHO with history of HIV. Images reviewed: CXR w/ minimal basilar atelectasis. CTA Pulm negative for PE , aneurysmal dilatation of descending thoracic aorta, left perihilar pneumonitis with findings of FERCHO in the lingula. Labs reviewed: Blood cultures with no growth 2 days. Urinary antigens negative. ABG with alkalosis and hypoxia. -Continue IV azithromycin and ceftriaxone, appreciate ID input -Mycobacteria culture pending -Pulmonary following, Bronch planned today 11/20/2016 - with additional plan to remove PEG tube. -O2 and nebs as needed History of HIV: Questionable compliance. - CD4 count very low around 30. - Patient is already on Bactrim prophylaxis. He is also getting daily Azithromycin. - Once daily dosing is completed, patient will need weekly Azithromycin 1200mg. - Discussed with ID on 11/20/2016. History of throat cancer: S/P tracheostomy and PEG tube placement. ENT consulted, recommended leaving tracheostomy in place for 6 months to 1 year after cancer treatment, continue outpatient ENT follow-up. PEG tube infection: PEG tube site growing pseudomonas. Continue antibiotics. GI and ID on board. Likely removal of PEG tube today. DVT Prophylaxis: SCD/Teds. Saran Thapa DO Nov 20, 2016 20:35
[2016-11-20] MEDS: MORPHINE SULFATE 4 MG/ML INJ IV PRN (23:14)
[2016-11-21] VITALS (13 sets, daily range): BP systolic 117–138; BP diastolic 69–87; PULSE 70–92; RESP 11–25; TEMP 98–98.6; O2SAT 92–100
[2016-11-21] MEDS: CHLORHEXIDINE GLUCONATE 2 % 1 PACK (2 CLOTHS) TOP SCH (04:00)
[2016-11-21] MEDS: SODIUM CHLORIDE 0.9% FLUSH 5 ML FLUSH FLUSH SCH ×2 (07:59→19:49)
[2016-11-21] MEDS: MORPHINE SULFATE 4 MG/ML INJ IV PRN ×3 (12:27→19:59)
--- NOTE | 2016-11-21 16:07 | HHI.PR ---
Addendum to Inpatient Note Addendum Reason: Additional Documentation Additional Information d/w Clinically pt has no SOB or CP, No fevers Low CD4 count: ? compliance with HAART. Will not start HAART inpatient. Patient to see his ID Doctor Dr.Wang MA at PEG tube site likely colonization not infection clinically. DC Ceftriaxone IV DC Azithro IV daily Discharge recs: Azithro 1200 mg po daily 1 month supply Bactrim DS 1 po Mon, Wed and Fri. Follow up with patients HIV/ID physician: Will sign off please call back if any change in clinical condition. Denise Hernandez MD Nov 21, 2016 16:07
[2016-11-21] MEDS ORDERED: AZITHROMYCIN 600 MG TAB PO SCH (17:00)
--- NOTE | 2016-11-21 17:18 | HHI.PR ---
Subjective Remarks Follow-up for pneumonitis, cancer of epiglottis s/p chemoradiation. Patient is currently doing well. He underwent bronchoscopy and PEG tube removal yesterday. He is tolerating diet well. Denies any chest pain, shortness of breath, fever or chills. Objective Vitals Vital Signs Date Time Temp Pulse Resp B/P Pulse Ox O2 Delivery O2 Flow Rate FiO2 11/21/16 14:00 79 11/21/16 12:00 98.4 89 21 138/87 100 11/21/16 12:00 89 11/21/16 10:00 92 11/21/16 08:00 70 11/21/16 08:00 98.2 76 18 137/74 92 11/21/16 07:00 Room Air 11/21/16 06:00 74 11/21/16 04:00 98.0 74 11 136/83 94 11/21/16 04:00 74 11/21/16 02:00 72 11/21/16 00:00 98.1 73 25 129/71 98 11/21/16 00:00 74 11/20/16 22:00 75 11/20/16 20:00 98.1 80 20 126/73 95 11/20/16 20:00 80 11/20/16 19:33 98 21 11/20/16 19:00 Room Air 11/20/16 18:00 89 I/O 11/20/16 11/20/16 11/20/16 11/21/16 11/21/16 11/21/16 07:00 15:00 23:00 07:00 15:00 23:00 Intake Total 448 ml 1450 ml 240 ml 590 ml 480 ml Output Total 800 ml 575 ml Balance -352 ml 875 ml 240 ml 590 ml 480 ml Intake Oral 120 ml 0 ml 240 ml 240 ml 480 ml IV Total 328 ml 550 ml 0 ml 350 ml Other 900 ml Output Urine Total 800 ml 575 ml # Voids 3 2 4 3 3 # Bowel Movements 0 0 0 0 0 Result Diagram: 11/18/16204911/18/16411 Imaging Last Impressions Chest X-Ray 11/20/16 0000 Signed Impressions: Service Date/Time: Sunday, November 20, 2016 13:29 - CONCLUSION: No acute disease. Romario Clarke MD CT Angiography 11/17/162133 Signed Impressions: Service Date/Time: Thursday, November 17, 2016 22:51 - CONCLUSION: 1. No evidence of pulmonary embolism. 2. Aneurysmal dilatation of the descending and descending thoracic aorta to 5.4 cm. 3. Left perihilar pneumonitis with findings of FERCHO in the lingula Enmanuel Cortez MD Objective Remarks GENERAL: AOX3, NAD. SKIN: Warm and dry. HEAD: Normocephalic. EYES: No scleral icterus. No injection or drainage. NECK: Supple, trachea midline. No JVD or lymphadenopathy. CARDIOVASCULAR: Regular rate and rhythm without murmurs, gallops, or rubs. RESPIRATORY: Breath sounds equal bilaterally. No accessory muscle use. s/p trach. GASTROINTESTINAL: Abdomen soft, non-tender, nondistended. s/p PEG tube placement. Tender around the peg tube site. MUSCULOSKELETAL: No cyanosis, or edema. BACK: Nontender without obvious deformity. No CVA tenderness. Procedures Bronch, PEG tube removal 11/20/2016. A/P Problem List: (1) Pneumonitis ICD Code: J18.9 Status: Acute (2) Hypoxia ICD Code: R09.02 Status: Acute (3) FERCHO (mycobacterium avium-intracellulare) ICD Code: A31.0 Status: Acute (4) HIV (human immunodeficiency virus infection) ICD Code: Z21 Status: Acute (5) Tracheostomy present ICD Code: Z93.0 Status: Acute Assessment and Plan Mr. Winston is a 61-year-old male with a PMH of Throat CA s/p Tracheostomy/PEG Tube Placement, HIV, Bipolar Disorder, PTSD, h/o CVA and COPD who presented w/ complaints of SOB x2 months Pneumonitis: c/o SOB x1-2 months, now progressively worse. Concern for FERCHO with history of HIV. Images reviewed: CXR w/ minimal basilar atelectasis. CTA Pulm negative for PE , aneurysmal dilatation of descending thoracic aorta, left perihilar pneumonitis with findings of FERCHO in the lingula. Labs reviewed: Blood cultures with no growth 2 days. Urinary antigens negative. ABG with alkalosis and hypoxia. -Ceftriaxone and azithromycin IV discontinued. - Per ID will continue azithromycin 1200 mg by mouth every weekly and Bactrim Friday -Pulmonary following, Bronch done 11/20/2016. PEG tube was removed on the same day. -O2 and nebs as needed History of HIV: Questionable compliance. - CD4 count very low around 30. - Patient is already on Bactrim prophylaxis. History of throat cancer: S/P tracheostomy and PEG tube placement. ENT consulted, recommended leaving tracheostomy in place for 6 months to 1 year after cancer treatment, continue outpatient ENT follow-up. DVT Prophylaxis: SCD/Teds. We'll discharge patient tomorrow in the morning. Saran Thapa DO Nov 21, 2016 5:18 pm
[2016-11-21] MEDS ORDERED: AZIT600T PO (17:20)
[2016-11-21] MEDS ORDERED: BACT800T5 PO (17:20)
--- NOTE | 2016-11-21 18:44 | MP ---
cc: Matilde MCKEON M.D. DATE OF SURGERY 11/21/16 PROCEDURE Fiberoptic bronchoscopy with brushings, washings and lavage. PREOPERATIVE DIAGNOSIS Bilateral lung infiltrates. POSTOPERATIVE DIAGNOSIS Bilateral lung infiltrates with immunocompromised state. ANESTHESIA General. The patient had a tracheostomy in place. SURGEON Dr. Lauro Mckeon PROCEDURE AND FINDINGS The patient was sedated with IV Diprivan and was ventilated via the trache tube. The Olympus IT 180 bronchoscope was used to visualize bronchi. The scope was advanced via the tracheostomy tube into the trachea. Trachea and chary appeared normal. Scope was then advanced through the right mainstem and right upper lobe segmental bronchi. These bronchi demonstrated mild endobronchitis with mucoid secretions. These were suctioned out. Next, the right middle and lower lobe segmental bronchi were visualized which demonstrated mild endobronchitis with mucoid secretions. These were suctioned out and saline washings were done. Scope was also advanced into the left mainstem and left upper lobe segmental bronchi. These bronchi demonstrated moderate endobronchitis with mucosal edema and mucosal ridging and thick mucoid secretions. These were suctioned out. Saline washings were done. Brushings were done for micro and cytology. Scope was also advanced in the left lower lobe segmental bronchi which demonstrated moderate endobronchitis with mucoid secretions. These were suctioned out. Saline washings and lavage were done and the procedure was then terminated. No endobronchial lesions were seen on either side. MD MICHELLE Mckeon/ /1:11 PM /6:37 PM
[2016-11-21] MEDS ORDERED: ALBUTEROL SULFATE 90 MCG/ACT HFA 8 GM INHALER INH PRN (19:45)
--- NOTE | 2016-11-21 19:45 | HHI.PR ---
Subjective Remarks Bronch results are pending. Feels better. . Less cough and no fever. Trach secretions are clear. Objective Vital Signs Date Time Temp Pulse Resp B/P Pulse Ox O2 Delivery O2 Flow Rate FiO2 11/21/16 19:00 Room Air 11/21/16 18:25 95 11/21/16 18:00 76 11/21/16 16:00 98.5 82 19 117/74 100 11/21/16 16:00 82 11/21/16 14:00 79 11/21/16 12:00 98.4 89 21 138/87 100 11/21/16 12:00 89 11/21/16 10:00 92 11/21/16 08:00 70 11/21/16 08:00 98.2 76 18 137/74 92 11/21/16 07:00 Room Air 11/21/16 06:00 74 11/21/16 04:00 98.0 74 11 136/83 94 11/21/16 04:00 74 11/21/16 02:00 72 11/21/16 00:00 98.1 73 25 129/71 98 11/21/16 00:00 74 11/20/16 22:00 75 11/20/16 20:00 98.1 80 20 126/73 95 11/20/16 20:00 80 I/O 11/20/16 11/20/16 11/20/16 11/21/16 11/21/16 11/21/16 07:00 15:00 23:00 07:00 15:00 23:00 Intake Total 448 ml 1450 ml 240 ml 590 ml 480 ml Output Total 800 ml 575 ml Balance -352 ml 875 ml 240 ml 590 ml 480 ml Intake Oral 120 ml 0 ml 240 ml 240 ml 480 ml IV Total 328 ml 550 ml 0 ml 350 ml Other 900 ml Output Urine Total 800 ml 575 ml # Voids 3 2 4 3 3 # Bowel Movements 0 0 0 0 0 Result Diagram: 11/18/16204911/18/16411 Objective Remarks GENERAL: This is a well-nourished, well-developed patient, in no apparent distress.Trach tube in neck. CARDIOVASCULAR: Regular rate and rhythm without murmurs, gallops, or rubs. RESPIRATORY: Diffuse expiratory wheezes, diminished breath sounds bilaterally. GASTROINTESTINAL: Abdomen soft, non-tender,nondistended. Normal active bowel sounds MUSCULOSKELETAL: Extremities without clubbing, cyanosis, or edema. NEURO: Alert & Oriented x4 to person, place, time, situation. Moves all ext x4 Assessment and Plan Assessment and Plan Assessment and Plan Assessment and Plan Problem List: (1) Pneumonitis ICD Code: J18.9 Status: Acute (2) Hypoxia ICD Code: R09.02 Status: Acute (3) FERCHO (mycobacterium avium-intracellulare) ICD Code: A31.0 Status: Acute (4) HIV (human immunodeficiency virus infection) ICD Code: Z21 Status: Acute (5) Tracheostomy present Plan : 1. Cont Antibiotics per ID. 2. D/C Nebs and add Albuterol HFA , 2 puffs qid prn 3. Trach Care and suction prn. 4. Switch to PO meds in am. 5. Home in am for OP F/UMatilde Shepard MD Nov 21, 2016 19:45
[2016-11-21] MEDS: DEXT 5%-NACL 0.45% 1000 ML INJ 1,000 ML IV SCH (19:49)
[2016-11-22] VITALS: BP 128/75; PULSE 74; RESP 18; TEMP 98.5; O2SAT 97
[2016-11-22 02:00] VITALS: PULSE 75
[2016-11-22 04:00] VITALS: BP 128/71; PULSE 76; RESP 17; TEMP 98.7; O2SAT 95
[2016-11-22] MEDS: CHLORHEXIDINE GLUCONATE 2 % 1 PACK (2 CLOTHS) TOP SCH (04:00)
[2016-11-22 06:00] VITALS: PULSE 65
[2016-11-22] MEDS ORDERED: MSIR15 PO (07:59)
[2016-11-22 08:00] VITALS: BP 128/75; PULSE 69; RESP 16; TEMP 98.2; O2SAT 95
--- NOTE | 2016-11-22 08:01 | HHI.DS ---
Discharge Summary Admission Date Nov 18, 2016 at 12:02 am Discharge Date: Nov 22, 2016 Admitting Diagnosis Hypoxia on RA, Pneumonia- suspicioius for FERCHO. (1) Pneumonitis ICD Code: J18.9 Diagnosis: Principal (2) Hypoxia ICD Code: R09.02 (3) FERCHO (mycobacterium avium-intracellulare) ICD Code: A31.0 (4) HIV (human immunodeficiency virus infection) ICD Code: Z21 Diagnosis: Principal (5) Tracheostomy present ICD Code: Z93.0 Procedures Bronch, PEG tube removal 11/20/2016. Brief History - From Admission This is a 61-year-old male with a PMH of Throat CA s/p Tracheostomy/PEG Tube Placement, HIV (Unknown CD4), Bipolar Disorder, PTSD, h/o CVA and COPD who presented to the ER w/ complaints of SOB x2 months. Pt is significantly poor historian, unable to provide clear history. Reports ongoing SOB x2 months, but then states he was seen by his Oncologist and told he was in remission from Throat CA so would like his Tracheostomy and his PEG Tube removed. Denies fever , chills or chest pain. Does report some drainage from around PEG Tube, however insists he would like it removed. On arrival, BP 146/80, HR 91, O2 sat 100% on RA, Afebrile. ABG with hypoxia, pH 7.53, PCO2 26, PO2 68 on RA, placed on Trach Collar w/ 100% O2 sat. CVC at baseline. Chemistry essentially unremarkable. Lactic Acid normal. Troponin negative. INR 0.9. D-dimer 3.86. CXR with tracheostomy, minimal basilar atelectasis. CTA Pulm negative for PE , noted to have aneurysmal dilatation of descending thoracic aorta, left perihilar pneumonitis with findings of FERCHO. S/p Blood Cultures, Rocephin/ Zithro in ER. CBC/BMP: 11/18/160 11/18/16 0412 Imaging Last Impressions Chest X-Ray 11/20/16 0000 Signed Impressions: Service Date/Time: Sunday, November 20, 2016 13:29 - CONCLUSION: No acute disease. Romario Clarke MD CT Angiography 11/17/162133 Signed Impressions: Service Date/Time: Thursday, November 17, 2016 22:51 - CONCLUSION: 1. No evidence of pulmonary embolism. 2. Aneurysmal dilatation of the descending and descending thoracic aorta to 5.4 cm. 3. Left perihilar pneumonitis with findings of FERCHO in the lingula Enmanuel Cortez MD PE at Discharge GENERAL: AOX3, NAD. SKIN: Warm and dry. HEAD: Normocephalic. EYES: No scleral icterus. No injection or drainage. NECK: Supple, trachea midline. No JVD or lymphadenopathy. CARDIOVASCULAR: Regular rate and rhythm without murmurs, gallops, or rubs. RESPIRATORY: Breath sounds equal bilaterally. No accessory muscle use. s/p trach. GASTROINTESTINAL: Abdomen soft, non-tender, nondistended. s/p PEG tube placement. Tender around the peg tube site. MUSCULOSKELETAL: No cyanosis, or edema. BACK: Nontender without obvious deformity. No CVA tenderness. Pt update on day of discharge Patient is doing well. No acute concerns. Denies any fever, chills. Hospital Course Mr. Winston is a 61-year-old male with a PMH of Throat CA s/p Tracheostomy/PEG Tube Placement, HIV, Bipolar Disorder, PTSD, h/o CVA and COPD who presented w/ complaints of SOB x2 months Pneumonitis: c/o SOB x1-2 months, now progressively worse. Concern for FERCHO with history of HIV. Images reviewed: CXR w/ minimal basilar atelectasis. CTA Pulm negative for PE , aneurysmal dilatation of descending thoracic aorta, left perihilar pneumonitis with findings of FERCHO in the lingula. Labs reviewed: Blood cultures with no growth. Urinary antigens negative. ABG with alkalosis and hypoxia. - Ceftriaxone and azithromycin IV given and later switched to prophylaxis azithromycin only. - Per ID will continue azithromycin 1200 mg by mouth every weekly and Bactrim Friday -Pulmonary following, Bronch done 11/20/2016. PEG tube was removed on the same day. -O2 and nebs as needed History of HIV: Questionable compliance. - CD4 count very low around 30. - Patient is already on Bactrim prophylaxis. History of throat cancer: S/P tracheostomy and PEG tube placement. ENT consulted, recommended leaving tracheostomy in place for 6 months to 1 year after cancer treatment, continue outpatient ENT follow-up. Patient was discharged on 11/22/2016. Outpatient follow-up with ENT recommended. Pt Condition on Discharge: Good Discharge Disposition: Discharge Home Discharge Time: > 30 minutes Discharge Instructions DIET: Follow Instructions for: As Tolerated, No Restrictions Activities you can perform: Regular-No Restrictions Follow up Referrals: Infectious Disease - [address] Sotomayor PCP Follow-up New Medications: Azithromycin (Azithromycin) 600 Mg Tab 1200 MG PO Q7D Infection Days 28 TAB Sulfamethoxazole-Trimethoprim (Bactrim DS) 800-160 Mg Tab 1 TAB PO MoWeFr@09 Infection Days 30 TAB Continued Medications: Morphine IR (Morphine IR) 15 Mg Tab 15 MG PO Q12HR PRN PAIN #20 Ref 0 TAB (This prescription has been renewed) Saran Thapa DO Nov 22, 2016 8:01 am
[2016-11-22] MEDS: MORPHINE SULFATE 4 MG/ML INJ IV PRN (08:15)
[2016-11-22] MEDS: SULFAMETHOXAZOLE-TRIMETHOPRIM DS 800-160 MG TAB PO SCH (08:15)
[2016-11-22] MEDS: SODIUM CHLORIDE 0.9% FLUSH 5 ML FLUSH FLUSH SCH (08:15)
== END 2016-11-22 10:16 | disposition home or self-care (01) | DRG 975 ==
LOC: NEPE 20:35 → NEDA 11-18 00:02 → N03A 11-18 01:30
PROVIDERS: ADMIT Hospitalist; ATTEND Hospitalist
PROC: 0CJS8ZZ Inspection of Larynx, Via Natural or Artificial Opening Endoscopic (ICD-10-PCS; 2016-11-19)
PROC: 0BB88ZX Excision of Left Upper Lobe Bronchus, Via Natural or Artificial Opening Endoscopic, Diagnostic (ICD-10-PCS; 2016-11-20)
PROC: 0DP6XUZ Removal of Feeding Device from Stomach, External Approach (ICD-10-PCS; 2016-11-20)
PROC: 0BBB8ZX Excision of Left Lower Lobe Bronchus, Via Natural or Artificial Opening Endoscopic, Diagnostic (ICD-10-PCS; principal; 2016-11-20 12:35)
DX: B20 Human immunodeficiency virus [HIV] disease (principal); J44.0 Chronic obstructive pulmonary disease with (acute) lower respiratory infection; J15.8 Pneumonia due to other specified bacteria; A31.0 Pulmonary mycobacterial infection; Z93.0 Tracheostomy status; I71.2 Thoracic aortic aneurysm, without rupture; Z43.1 Encounter for attention to gastrostomy; Z85.819 Personal history of malignant neoplasm of unspecified site of lip, oral cavity, and pharynx; Z91.14 Patient's other noncompliance with medication regimen; F31.9 Bipolar disorder, unspecified; F43.10 Post-traumatic stress disorder, unspecified; Z86.73 Personal history of transient ischemic attack (TIA), and cerebral infarction without residual deficits; R09.02 Hypoxemia; Z72.0 Tobacco use; F10.10 Alcohol abuse, uncomplicated; Z92.21 Personal history of antineoplastic chemotherapy; Z92.3 Personal history of irradiation; Z86.711 Personal history of pulmonary embolism; Z86.718 Personal history of other venous thrombosis and embolism
CPT/HCPCS: 36600; 71010; 71275; 80053; 80074; 81001; 82550; 82805; 83605; 83690; 83735; 83880; 84484; 85025; 85379; 85610; 85730; 86355; 86357; 86359; 86360; 86592; 87015; 87040; 87070; 87071; 87077; 87102; 87116; 87186; 87205; 87206; 87449; 87535; 87641; 88112; 88305; 88312; 93005; 96361; 96374; 96375; A7521; J0171; J0456; J0696; J2250; J2270; J2405; J2930; J3010; J7030; J7050; Q9967

== ENCOUNTER 2016-12-20 22:15 | Inpatient (IN) | payer OTHER ==
[~2016-12-20] VITALS: Ht 185.4 cm; Wt 68.8 kg
[~2016-12-20 22:15] MED LIST changes: -ALUM5LIQ PO; +AZIT600T PO; +BACT800T5 PO; -CIME200T2 PO; +MSIR15 PO; -OMEP20TA39 PO; -SUST600T4 PO; -TRAZ100 PO; -ULTR50TA PO
[2016-12-20 22:16] VITALS: BP 132/85; PULSE 80; RESP 14; TEMP 98; O2SAT 100
--- NOTE | 2016-12-20 22:28 | PD ---
HPI Chief Complaint: Respiratory Symptoms Time Seen by Provider: 22:28 Travel History International Travel<30 days: No Contact w/Intl Traveler<30days: No Traveled to known affect area: No History of Present Illness HPI 61-year-old male with a history of HIV, COPD, throat cancer status post tracheostomy presents to the emergency department by EMS for evaluation of shortness of breath. Per EMS report they were called because the patient was drinking alcohol with his friends and accidentally slid out of his barstool landing on his buttock's. After he slid out of the chair he apparently began to hyperventilate stating that he was short of breath and he was having discomfort in his trach. The patient states that he's had what he describes as "swelling" and discomfort around his tracheostomy for the past 12 days. States that he is tired of his trach and wants it out. States that he has a history of throat cancer and has had 35 rounds of radiation and 8 rounds of chemotherapy , is not currently receiving any chemotherapy or radiation. The patient is very emotional and is crying and anxious stating that "I think I'm going to . " He follows up at the [facility] for all of his care. He admits to drinking 4 liquor drinks tonight. Denies chest pain, lightheadedness, dizziness, nausea, vomiting , abdominal pain. PFSH Past Medical History Anemia: Yes Arthritis: Yes (OSTEOARTHRITIS) Autoimmune Disease: Yes (HIV) Depression: Yes Cancer: Yes Cardiovascular Problems: Yes Chemotherapy: Yes Cirrhosis: Yes COPD: Yes Diminished Hearing: No Endocrine: No Gastrointestinal Disorders: Yes GERD: Yes Genitourinary: Yes Hepatitis: Yes Immune Disorder: No Implanted Vascular Access Dvce: Yes Musculoskeletal: Yes (LEFT KNEE SURGERY) Neurologic: Yes Psychiatric: Yes (PTSD) Reproductive: No Respiratory: Yes (TRACHEOSTOMY) Radiation Therapy: Yes Past Surgical History Body Medical Devices: TRACHEOSTOMY AND PEG TUBE Other Surgery: Yes (TRACH) Social History Alcohol Use: Yes (DAILY) Tobacco Use: Yes (DAILY) Substance Use: Yes Allergies-Medications (Allergen,Severity, Reaction): Coded Allergies: No Known Allergies (Verified , 12/20/16) Reported Meds & Prescriptions Reported Meds & Active Scripts Active Morphine IR (Morphine Sulfate) 15 Mg Tab 15 Mg PO Q12HR PRN Bactrim DS (Sulfamethoxazole-Trimethoprim) 800-160 Mg Tab 1 Tab PO MOWEFR@09 30 Days Azithromycin 600 Mg Tab 1,200 Mg PO Q7D 28 Days Review of Systems Except as stated in HPI: all other systems reviewed are Neg Physical Exam Narrative GENERAL: Well-nourished and well-developed male patient in no acute distress. Anxious appearing, tearful and upset. SKIN: Warm and dry. HEAD: Normocephalic and atraumatic. EYES: No injection, drainage, or hyphema noted. PERRLA. EOMI. ENT: No nasal drainage noted. Oropharynx is clear. NECK: Supple and the trachea is midline. Tracheostomy in place. No erythema, redness, swelling. CARDIOVASCULAR: Regular rate and rhythm. RESPIRATORY: Breath sounds are equal bilaterally with no accessory muscle use, wheezing, rhonchi, or crackles. GASTROINTESTINAL: Abdomen is soft, non-tender, and nondistended. MUSCULOSKELETAL: No obvious deformities, swelling, cyanosis, or ecchymosis is present throughout the upper and lower extremities. Patient has full range of motion without any signs of neurovascular compromise. NEUROLOGICAL: Awake, alert, and oriented. Normal speech and gait. Cranial nerves are grossly intact. Data Data Last Documented VS Vital Signs Date Time Temp Pulse Resp B/P Pulse Ox O2 Delivery O2 Flow Rate FiO2 12/20/16 22:31 100 Trach Collar 12/20/16 22:16 98.0 80 14 132/85 Orders Ckmb (Isoenzyme) Profile (12/20/16 22:26) Complete Blood Count With Diff (12/20/16 22:26) Comprehensive Metabolic Panel (12/20/16 22:26) Magnesium (Mg) (12/20/16 22:26) Prothrombin Time / Inr (Pt) (12/20/16 22:26) Act Partial Throm Time (Ptt) (12/20/16 22:26) Troponin I (12/20/16 22:26) Chest, Single Ap (12/20/16 22:26) Ecg Monitoring (12/20/16 22:26) Iv Access Insert/Monitor (12/20/16 22:26) Oximetry (12/20/16 22:26) Sodium Chloride 0.9% Flush (Ns Flush) (12/20/16 22:30) Soft Tissue Neck (12/20/16 ) Lorazepam Inj (Ativan Inj) (12/20/16 22:30) ^ Sitter (12/20/16 22:29) Drug Screen, Random Urine (12/20/16 23:00) Ns (Bolus) Inj (12/20/16 23:00) Alcohol (Ethanol) (12/20/16 23:00) Blood Culture (12/20/16 23:00) MDM Medical Decision Making Medical Screen Exam Complete: Yes Emergency Medical Condition: Yes Differential Diagnosis Alcohol intoxication versus tracheostomy dysfunction versus COPD exacerbation versus pneumonia versus anxiety Narrative Course 61-year-old male is brought to the emergency department by EMS for evaluation of difficulty breathing. Patient is afebrile, vital signs are stable. Oxygen saturation is 100% on room air. The patient has a tracheostomy secondary to throat cancer. He is complaining of discomfort at the site of his tracheostomy and difficulty breathing. Lungs are clear to auscultation. I review the MR shows that the patient was recently admitted for pneumonitis and pneumonia possible FERCHO. States he is taking the antibiotics he was discharged on but has not followed up with his infectious disease specialist. Low CD4 count around 30. Questionable noncompliance with HAART therapy. The patient appears anxious and intoxicated. I believe there is some element of substance induced mood disorder. IV access is obtained, labs have been drawn and sent. Patient is administered Ativan 1 mg IV and IV fluids. Patient signed out to Dr. Garzon who will assume care of the patient and disposition. Norma Dietz Dec 20, 2016 22:28
[2016-12-20] MEDS ORDERED: SODIUM CHLORIDE 0.9% FLUSH 5 ML FLUSH IVF PRN (22:30)
[2016-12-20] MEDS ORDERED: LORazepam 2 MG/ML VIAL IV PUSH ONE (22:30)
[2016-12-20 22:31] VITALS: O2SAT 100
[2016-12-20] MEDS ORDERED: SODIUM CHLOR 0.9% 1000 ML INJ 1,000 ML IV ONE (23:00)
--- NOTE | 2016-12-20 23:14 | RADRPT ---
EXAM DATE/TIME: 12/20/2016 22:46 [facility] COMPARISON: CHEST SINGLE AP, November 20, 2016, 13:29. INDICATIONS : Shortness of breath. MEDICAL HISTORY : None. SURGICAL HISTORY : None. ENCOUNTER: Initial ACUITY: 1 day PAIN SCORE: 0/10 LOCATION: Bilateral chest FINDINGS: A single view of the chest demonstrates tracheostomy in satisfactory position. Mild basilar scarring. No significant change from prior examination. No focal consolidation or effusion. CONCLUSION: 1. No acute findings. No significant change from November 20. Juan Colin MD on December 20, 2016 at 23:10 Board Certified Radiologist. This report was verified electronically.
--- NOTE | 2016-12-20 23:15 | RADRPT ---
EXAM DATE/TIME: 12/20/2016 22:50 [facility] COMPARISON: No previous studies available for comparison. INDICATIONS : Swelling and pain. MEDICAL HISTORY : Carcinoma, esophageal. SURGICAL HISTORY : Tracheostomy. ENCOUNTER: Initial ACUITY: 1 day PAIN SCORE: 5/10 LOCATION: Throat. FINDINGS: Tracheostomy present. Epiglottis not well visualized. Radiopaque foreign bodies identified. There germain s appear to be some mild supraglottic narrowing. CONCLUSION: 1. Tracheostomy present. Questionable mild supraglottic airway narrowing. Juan Colin MD on December 20, 2016 at 23:12 Board Certified Radiologist. This report was verified electronically.
[2016-12-20 23:23] VITALS: BP 131/88; PULSE 79; RESP 18; O2SAT 100
[2016-12-20 23:35] LABS: ANION GAP 11 MEQ/L (5-15)
[2016-12-20 23:41] LABS: ALKALINE PHOSPHATASE 104 U/L (45-117); ALT (GPT) 18 U/L (12-78); AST (GOT) 23 U/L (15-37); BICARBONATE 22.2 MEQ/L (21.0-32.0); BLOOD UREA NITROGEN 11 MG/DL (7-18); CHLORIDE 103 MEQ/L (98-107); GLOMERULAR FILTRATION RATE 72 ML/MIN (>89); MAGNESIUM 2.2 MG/DL (1.5-2.5); SODIUM (NA) 136 MEQ/L (136-145); TOTAL BILIRUBIN ADULT 0.3 MG/DL (0.2-1.0)
[2016-12-20 23:56] LABS: CREATINE KINASE 99 U/L (39-308)
[2016-12-21] VITALS (8 sets, daily range): BP systolic 105–126; BP diastolic 61–77; PULSE 66–82; RESP 18–20; TEMP 96.3–98.6; O2SAT 95–100
[2016-12-21 00:10] LABS: AUTOMATED NEUTROPHIL # 3.7 TH/MM3 (1.8-7.7); BASOPHIL # 0.1 TH/MM3 (0-0.2); BASOPHIL % 0.9 % (0.0-2.0); EOSINOPHIL # 0.3 TH/MM3 (0-0.4); EOSINOPHIL % 4.4 % (0.0-4.0); HEMATOCRIT 39.9 % (39.0-51.0); HEMO FLAGS DIFF FINAL; LYMPH % 31.4 % (9.0-44.0); LYMPHOCYTE # 2.1 TH/MM3 (1.0-4.8); MEAN CELL VOLUME 98.6 FL (80.0-100.0); MEAN CORPUSCULAR HEMOGLOBIN 34.1 PG (27.0-34.0); MEAN CORPUSCULAR HGB CONC 34.6 % (32.0-36.0); MONO % 8.1 % (0.0-8.0); NEUT % 55.2 % (16.0-70.0); PLATELET COUNT 195 TH/MM3 (150-450); RED BLOOD COUNT 4.05 MIL/MM3 (4.50-5.90); RED CELL DISTRIBUTION WIDTH 13.8 % (11.6-17.2); WHITE BLOOD COUNT 6.6 TH/MM3 (4.0-11.0)
--- NOTE | 2016-12-21 00:28 | PD ---
Data Data Last Documented VS Vital Signs Date Time Temp Pulse Resp B/P Pulse Ox O2 Delivery O2 Flow Rate FiO2 12/21/16 01:20 100 Trach Collar 5.00 28 12/21/16 01:01 70 18 123/77 12/20/16 22:16 98.0 Orders Ckmb (Isoenzyme) Profile (12/20/16 22:26) Complete Blood Count With Diff (12/20/16 22:26) Comprehensive Metabolic Panel (12/20/16 22:26) Magnesium (Mg) (12/20/16 22:26) Prothrombin Time / Inr (Pt) (12/20/16 22:26) Act Partial Throm Time (Ptt) (12/20/16 22:26) Troponin I (12/20/16 22:26) Chest, Single Ap (12/20/16 22:26) Ecg Monitoring (12/20/16 22:26) Iv Access Insert/Monitor (12/20/16 22:26) Oximetry (12/20/16 22:26) Sodium Chloride 0.9% Flush (Ns Flush) (12/20/16 22:30) Soft Tissue Neck (12/20/16 ) Lorazepam Inj (Ativan Inj) (12/20/16 22:30) ^ Sitter (12/20/16 22:29) Drug Screen, Random Urine (12/20/16 23:00) Sodium Chlor 0.9% 1000 Ml Inj (Ns 1000 M (12/20/16 23:00) Alcohol (Ethanol) (12/20/16 23:00) Blood Culture (12/20/16 23:00) Ct Soft Tiss Neck W Iv Cont (12/21/16 ) Ct Thorax/ Chest W Iv Contrast (12/21/16 ) Morphine Inj (Morphine Inj) (12/21/16 01:00) Morphine Inj (Morphine Inj) (12/21/16 02:30) Hydromorphone Pf Inj (Dilaudid Pf Inj) (12/21/16 02:30) Iohexol 350 Inj (Omnipaque 350 Inj) (12/21/16 03:20) Piperacil-Tazo 4.5 Gm Premix (Zosyn 4.5 (12/21/16 04:30) Admit To Inpatient (12/21/16 ) Vital Signs (Adult) Q4H (12/21/16 04:36) Activity Oob Ad Lisa (12/21/16 04:36) Intake + Output JOSE.QSHIFT (12/21/16 04:36) Diet Regular Basic (12/21/16 Breakfast) Sodium Chloride 0.9% Flush (Ns Flush) (12/21/16 04:45) Sodium Chloride 0.9% Flush (Ns Flush) (12/21/16 09:00) Ondansetron Inj (Zofran Inj) (12/21/16 04:45) Bisacodyl Supp (Dulcolax Supp) (12/21/16 04:45) Comprehensive Metabolic Panel (12/22/16 06:00) Complete Blood Count With Diff (12/22/16 06:00) Scd Bilateral/Knee High JOSE.BID (12/21/16 04:36) Martín Bilateral/Knee High JOSE.QSHIFT (12/21/16 04:36) Acetaminophen (Tylenol) (12/21/16 04:45) Hydromorphone Pf Inj (Dilaudid Pf Inj) (12/21/16 04:45) Inpatient Certification (12/21/16 ) Levofloxacin 750 Mg Premix Inj (Levaquin (12/22/16 06:00) Albuterol-Ipratropium Neb (Duoneb Neb) (12/21/16 04:45) Azithromycin (Zithromax) (12/21/16 04:45) Morphine Ir (Msir) (12/21/16 04:45) Sulfamet-Trimeth Ds 800-160 Mg (Bactrim (12/23/16 09:00) Morphine Inj (Morphine Inj) (12/21/16 05:00) Admit Order (Ed Use Only) (12/21/16 04:54) Labs Laboratory Tests Test 12/20/16 12/20/16 12/21/16 22:30 22:32 00:05 White Blood Count 6.6 TH/MM3 Red Blood Count 4.05 MIL/MM3 Hemoglobin 13.8 GM/DL Hematocrit 39.9 % Mean Corpuscular Volume 98.6 FL Mean Corpuscular Hemoglobin 34.1 PG Mean Corpuscular Hemoglobin 34.6 % Concent Red Cell Distribution Width 13.8 % Platelet Count 195 TH/MM3 Mean Platelet Volume 9.0 FL Neutrophils (%) (Auto) 55.2 % Lymphocytes (%) (Auto) 31.4 % Monocytes (%) (Auto) 8.1 % Eosinophils (%) (Auto) 4.4 % Basophils (%) (Auto) 0.9 % Neutrophils # (Auto) 3.7 TH/MM3 Lymphocytes # (Auto) 2.1 TH/MM3 Monocytes # (Auto) 0.5 TH/MM3 Eosinophils # (Auto) 0.3 TH/MM3 Basophils # (Auto) 0.1 TH/MM3 CBC Comment DIFF FINAL Differential Comment Prothrombin Time 10.4 SEC Prothromb Time International 0.9 RATIO Ratio Activated Partial 21.6 SEC Thromboplast Time Sodium Level 136 MEQ/L Potassium Level 4.0 MEQ/L Chloride Level 103 MEQ/L Carbon Dioxide Level 22.2 MEQ/L Anion Gap 11 MEQ/L Blood Urea Nitrogen 11 MG/DL Creatinine 1.04 MG/DL Estimat Glomerular Filtration 72 ML/MIN Rate Random Glucose 93 MG/DL Calcium Level 8.9 MG/DL Magnesium Level 2.2 MG/DL Total Bilirubin 0.3 MG/DL Aspartate Amino Transf 23 U/L (AST/SGOT) Alanine Aminotransferase 18 U/L (ALT/SGPT) Alkaline Phosphatase 104 U/L Total Creatine Kinase 99 U/L Troponin I LESS THAN 0.02 NG/ML Total Protein 8.6 GM/DL Albumin 3.3 GM/DL Ethyl Alcohol Level 261 MG/DL Urine Opiates Screen NEG Urine Barbiturates Screen NEG Urine Amphetamines Screen NEG Urine Benzodiazepines Screen NEG Urine Cocaine Screen NEG Urine Cannabinoids Screen NEG MDM Medical Record Reviewed: Yes Supervised Visit with ANGELA: Yes Narrative Course I, Dr. Garzon, have reviewed the advance practice practitioner's documentation and am in agreement, met with the patient face to face, made the diagnosis, and the medical decision making was done by me. *My assessment and Findings: At 1:45 AM the patient discontinued his tracheostomy appliance. He has evidently been doing this at home for a year now. He has demanded multiple times appliance be reversed. Soft tissue neck reveals a mass above the tracheostomy which was discussed with patient. Tracheostomy cleaned. The old inner cannula was replaced. CBC & BMP Diagram 12/20/16 22:30 12/20/16 22:32 LFTs normal Tn < 0.02 EKG: Sinus rate 83 supraventricular premature complexes, incomplete right bundle -branch block pattern, left anterior fascicular block Evidently the patient self discontinued his inner cannula/tracheostomy appliance on prior admission. 0220AM Pt states, "Give me another fucking pain shot." Last [address] 12/21/16 0000 Signed Impressions: Service Date/Time: Wednesday, December 21, 2016 03:12 - CONCLUSION: 1. Tracheostomy present in satisfactory position. 2. Subcutaneous edema in the anterior neck. 3. Nonspecific circumferential soft tissue swelling around the supraglottic airway and extending cephalad to the vallecular region. Mild soft tissue swelling posterior soft palate and epiglottis as well. Juan Colin MD Chest CT 12/21/16 0000 Signed Impressions: Service Date/Time: Wednesday, December 21, 2016 03:15 - CONCLUSION: 1. Patchy ground glass opacity right middle lobe and lingula characteristic of a mild bronchopneumonia. No effusion or adenopathy. 2. Aneurysmal dilatation of the thoracic aorta and proximal abdominal aorta to 4.9 cm diameter similar to prior exam from November 2016. 3. Mild emphysema. 4. Moderate coronary calcifications. Tracheostomy present. Juan Colin MD Chest X-Ray 12/20/166 Signed Impressions: Service Date/Time: Tuesday, December 20, 2016 22:46 - CONCLUSION: 1. No acute findings. No significant change from November 20. Juan Colin MD Soft Tissue Neck X-Ray 12/20/16 0000 Signed Impressions: Service Date/Time: Tuesday, December 20, 2016 22:50 - CONCLUSION: 1. Tracheostomy present. Questionable mild supraglottic airway narrowing. Juan Colin MD Admission for bilateral pna with aids. d/w Dr Dominguez. Diagnosis Primary Impression: HIV (human immunodeficiency virus infection) Additional Impression: Pneumonitis Admitting Information Admitting Physician Requests: Admit Ever Garzon MD Dec 21, 2016 00:28
[2016-12-21 00:30] LABS: AMPHETAMINE, URINE NEG (NEG); BARBITURATES, URINE NEG (NEG); COCAINE, URINE NEG (NEG)
[2016-12-21] MEDS ORDERED: MORPHINE SULFATE 8 MG/ML INJ IV PUSH ONE ×2 (01:00→02:30)
[2016-12-21] MEDS ORDERED: HYDROmorphone HCL PF 1 MG/ML VIAL IV PUSH ONE (02:30)
[2016-12-21] MEDS ORDERED: IOHEXOL 350 MG/ML 10 ML VIAL (for RAD DIAG) IV ONE (03:20)
--- NOTE | 2016-12-21 04:15 | RADRPT ---
EXAM DATE/TIME: 12/21/2016 03:12 [facility] COMPARISON: No previous studies available for comparison. INDICATIONS : Swelling above tracheotomy. IV CONTRAST: 30 cc Omnipaque 350 (iohexol) IV RADIATION DOSE: 17.95 CTDIvol (mGy) MEDICAL HISTORY : HIV. Cerebrovascular disease. SURGICAL HISTORY : Trachotomy ENCOUNTER: Initial ACUITY: 1 day PAIN SCALE: 5/10 LOCATION: neck TECHNIQUE: Volumetric scanning of the neck was performed. Using automated exposure control and adjustment of th e mA and/or kV according to patient size, radiation dose was kept as low as reasonably achievable to obtain optimal diagnostic quality images. FINDINGS: Tracheostomy is present. There is some subcutaneous edema in the anterior left neck. There is some fa irly symmetric soft tissue swelling around the supraglottic airway with narrowing of the supraglottic airway extending to the level of the vallecula. Posterior soft tissue palate is slightly prominent a nd there may be some minimal swelling of the epiglottis. No drainable fluid collections are seen. No pathologically enlarged lymph nodes are identified in nec k. Degenerative change of the spine. CONCLUSION: 1. Tracheostomy present in satisfactory position. 2. Subcutaneous edema in the anterior neck. 3. Nonspecific circumferential soft tissue swelling around the supraglottic airway and extending ceph alad to the vallecular region. Mild soft tissue swelling posterior soft palate and epiglottis as well . Juan Colin MD on December 21, 2016 at 4:07 Board Certified Radiologist. This report was verified electronically.
--- NOTE | 2016-12-21 04:21 | RADRPT ---
EXAM DATE/TIME: 12/21/2016 03:15 [facility] COMPARISON: No previous studies available for comparison. INDICATIONS : Shortness of breath IV CONTRAST: 65 cc Omnipaque 350 (iohexol) IV RADIATION DOSE: 3.39 CTDIvol (mGy) MEDICAL HISTORY : HIV. Cerebrovascular disease. SURGICAL HISTORY : Tracheotomy ENCOUNTER: Initial ACUITY: 1 day PAIN SCALE: 3/10 LOCATION: chest TECHNIQUE: Volumetric scanning of the chest was performed. Using automated exposure control and adjustment of t he mA and/or kV according to patient size, radiation dose was kept as low as reasonably achievable to obtain optimal diagnostic quality images. FINDINGS: Tracheostomy is in satisfactory position. No evidence for pulmonary embolus. There is mild emphysema. There is some patchy groundglass opacity in the right middle lobe and lingul a, characteristic of a mild bronchopneumonia. There is aneurysmal dilatation of the thoracic aorta an d proximal abdominal aorta to about 5 cm similar to prior study in November 2016. Extensive mural thr ombus present in the proximal abdominal aorta. No adenopathy. Moderate coronary calcifications. Small hiatal hernia. CONCLUSION: 1. Patchy ground glass opacity right middle lobe and lingula characteristic of a mild bronchopneumoni a. No effusion or adenopathy. 2. Aneurysmal dilatation of the thoracic aorta and proximal abdominal aorta to 4.9 cm diameter simila r to prior exam from November 2016. 3. Mild emphysema. 4. Moderate coronary calcifications. Tracheostomy present. Juan Colin MD on December 21, 2016 at 4:13 Board Certified Radiologist. This report was verified electronically.
[2016-12-21] MEDS ORDERED: PIPERACIL-TAZO 4.5 GM PREMIX 100 ML IV ONE (04:30)
[2016-12-21] MEDS ORDERED: ACETAMINOPHEN 325 MG TAB PO PRN (04:45)
[2016-12-21] MEDS ORDERED: HYDROmorphone HCL PF 1 MG/ML VIAL IV PRN (04:45)
[2016-12-21] MEDS ORDERED: BISACODYL 10 MG SUPP PR PRN (04:45)
[2016-12-21] MEDS ORDERED: SODIUM CHLORIDE 0.9% FLUSH 5 ML FLUSH FLUSH PRN (04:45)
[2016-12-21] MEDS ORDERED: MORPHINE SULFATE 15 MG TAB PO PRN (04:45)
[2016-12-21] MEDS ORDERED: ONDANSETRON HCL 4 MG/2 ML VIAL IVP PRN (04:45)
[2016-12-21] MEDS ORDERED: RESP: ALBUTEROL 2.5 MG/IPRATROPIUM 0.5 MG NEB (PRN) NEB (04:45)
--- NOTE | 2016-12-21 05:21 | HHI.HP ---
HPI Service [facility] Primary Care Physician [facility] Admission Diagnosis BILATERAL PNA Diagnoses: (1) PNA (pneumonia) Diagnosis: Principal (2) Throat cancer Diagnosis: Principal (3) Non-compliance Diagnosis: Principal (4) HIV (human immunodeficiency virus infection) Diagnosis: Principal (5) Alcohol intoxication Diagnosis: Principal (6) Tobacco abuse Diagnosis: Principal Travel History International Travel<30 Days: No Contact w/Intl Traveler <30 Da: No Traveled to Known Affected Are: No History of Present Illness This is a 61-year-old male with a PMH of Throat CA s/p Tracheostomy, PEG Tube Placement w/ Removal, HIV (CD4 30 on 11/18/16), Bipolar Disorder, PTSD, h/o CVA, Non-Compliance and COPD who was brought to the ER by EMS after falling off bar stool and complaining of neck swelling. Pt acutely intoxicated. Recent admit -11/22/16 for Pneumonitis and demanding for Trach/PEG to be removed, s/p eval by ID (Dr. Hernandez), Pulmonary (Dr. Mckeon) and ENT (Dr. Madsen), s/p IV Abx, s/ p PEG Tube removal, S/p Bronch. Eval by Dr. Madsen w/ recommendation to delay decannulation for 6mo-1yr following treatment for cancer and for pt to follow up w/ Dr. Salinas as outpatient, however pt is notoriously non-compliant. States he had 4 [employer] at bar, fell off bar stool and had c/o throat pain. Reports increased secretions x4 days. Denies fever or chills. Both Pt and extremely angry about overall care they have received from every facility and highly upset tracheostomy hasn't been removed. On arrival, BP 131/ 88, HR 79, O2 sat 100% on 3L Trach Collar, Afebrile. WBC normal, no elevated neutrophil count. Chemistry unremarkable. Neck X-ray with tracheostomy, questionable mild supraglottic airway narrowing. CXR with no acute findings. CT Neck with tracheostomy present, subcutaneous edema and anterior neck, nonspecific circumferential soft tissue swelling around supraglottic airway and CT Chest w/ patchy ground glass opacity RML and lingula characteristic of mild bronchopneumonia. S/p Zosyn in ER. Review of Systems ROS: 14 point review of systems otherwise negative. Past Family Social History Past Medical History PMH: Throat CA s/p Tracheostomy, PEG Tube Placement w/ Removal, HIV (CD4 30 on 11/18/16), Bipolar Disorder, PTSD, h/o CVA, Non-Compliance and COPD Past Surgical History PAST SURGICAL HISTORY: Tracheostomy, PEG Tube Allergies: Coded Allergies: No Known Allergies (Verified , 12/20/16) Family History PAST FAMILY HISTORY: Reviewed. No h/o DM or CAD Social History PAST SOCIAL HISTORY: Drinks daily. Positive for tobacco. Negative for drugs. Physical Exam Vital Signs Vital Signs Date Time Temp Pulse Resp B/P Pulse Ox O2 Delivery O2 Flow Rate FiO2 12/21/16 01:20 100 Trach Collar 5.00 28 12/21/16 01:01 70 18 123/77 99 Trach Collar 3 12/20/16 23:23 79 18 131/88 100 Trach Collar 3 12/20/16 22:31 100 Trach Collar 12/20/16 22:16 98.0 80 14 132/85 100 Physical Exam PE: GENERAL: Middle-aged white male in no acute distress, sitting up in bed, no respiratory distress, speaking full sentences clearly. at bedside, highly upset and aggravated. HEENT: PERRLA, EOMI. No scleral icterus or conjunctival pallor. No lid lag or facial droop. CARDIOVASCULAR: Regular rate and rhythm. No obvious murmurs to auscultation. No chest tenderness to palpation. RESPIRATORY: No obvious rhonchi or wheezing. Clear to auscultation. Breath sounds equal bilaterally. GASTROINTESTINAL: Abdomen soft, non-tender, nondistended. BS normal. MUSCULOSKELETAL: Extremities without clubbing, cyanosis, or edema. No obvious deformities. NEUROLOGICAL: Awake, alert and oriented x4. No focal neurologic deficits. Moving both upper and lower extremities spontaneously. Laboratory Laboratory Tests Test 12/20/16 12/20/16 12/21/16 22:30 22:32 00:05 White Blood Count 6.6 Red Blood Count 4.05 Hemoglobin 13.8 Hematocrit 39.9 Mean Corpuscular Volume 98.6 Mean Corpuscular Hemoglobin 34.1 Mean Corpuscular Hemoglobin 34.6 Concent Red Cell Distribution Width 13.8 Platelet Count 195 Mean Platelet Volume 9.0 Neutrophils (%) (Auto) 55.2 Lymphocytes (%) (Auto) 31.4 Monocytes (%) (Auto) 8.1 Eosinophils (%) (Auto) 4.4 Basophils (%) (Auto) 0.9 Neutrophils # (Auto) 3.7 Lymphocytes # (Auto) 2.1 Monocytes # (Auto) 0.5 Eosinophils # (Auto) 0.3 Basophils # (Auto) 0.1 CBC Comment DIFF FINAL Differential Comment Prothrombin Time 10.4 Prothromb Time International 0.9 Ratio Activated Partial 21.6 Thromboplast Time Sodium Level 136 Potassium Level 4.0 Chloride Level 103 Carbon Dioxide Level 22.2 Anion Gap 11 Blood Urea Nitrogen 11 Creatinine 1.04 Estimat Glomerular Filtration 72 Rate Random Glucose 93 Calcium Level 8.9 Magnesium Level 2.2 Total Bilirubin 0.3 Aspartate Amino Transf 23 (AST/SGOT) Alanine Aminotransferase 18 (ALT/SGPT) Alkaline Phosphatase 104 Total Creatine Kinase 99 Troponin I LESS THAN 0.02 Total Protein 8.6 Albumin 3.3 Ethyl Alcohol Level 261 Urine Opiates Screen NEG Urine Barbiturates Screen NEG Urine Amphetamines Screen NEG Urine Benzodiazepines Screen NEG Urine Cocaine Screen NEG Urine Cannabinoids Screen NEG Date/Time Procedure Status Source Growth 12/20/16 23:30 Aerobic Blood Culture Received Blood Peripheral Pending 12/20/16 23:30 Anaerobic Blood Culture Received Blood Peripheral Pending Result Diagram: 12/20/16222912/20/162231 Assessment and Plan Problem List: (1) PNA (pneumonia) ICD Code: J18.9 Status: Acute (2) Throat cancer ICD Code: C14.0 Status: Acute (3) Non-compliance ICD Code: Z91.19 Status: Acute (4) HIV (human immunodeficiency virus infection) ICD Code: Z21 Status: Acute (5) Tobacco abuse ICD Code: Z72.0 Status: Acute (6) Alcohol intoxication ICD Code: F10.129 Status: Acute Assessment and Plan A/P: 1. PNA: CXR w/ no acute findings, CT Chest w/ patchy ground glass opacity right middle lobe and lingula characteristic of mild bronchopneumonia, images reviewed by me. S/p Zosyn in ER. Will continue w/ IV Abx, DuoNeb prn, Symbicort, Mucinex. 2. Throat CA: S/p Tracheostomy by Dr. Salinas in addition to Chemo/ Radiation. Pt floridly non-compliant w/ follow-up and treatment, yet highly upset tracheostomy remains in place. S/p eval by Dr. Madsen on previous admit w / recommendation for follow up w/ Dr. Salinas and delay of decannulation until laryngeal edema improved. CT Neck w/ subcutaneous edema and anterior neck , nonspecific circumferential soft tissue swelling around supra-glottic airway images reviewed by me. Stressed importance of pt following up w/ Dr. Salinas. 3. Non-Compliance: As above, pt non-compliant w/ treatment and follow up despite significant counselling. 4. HIV: Last CD4 30 on 11/18/16, resume prophylaxis w/ Bactrim/Zithro. 5. Alcohol Intoxication: Drinks daily, currently intoxicated. Monitor for withdrawal. Ativan prn. 6. Tobacco Abuse: Pt counselled. Ativan prn. 7. DVT Prophylaxis: SCD/Teds. 8. Social work for d/c planning as needed. 9. Case discussed w/ ER physician at length. Physician Certification 2 Midnight Certification Type: Admission for Inpatient Services Order for Inpatient Services The services are ordered in accordance with Medicare regulations or non- Medicare payer requirements, as applicable. In the case of services not specified as inpatient-only, they are appropriately provided as inpatient services in accordance with the 2-midnight benchmark. Estimated LOS (days): 2 days is the estimated time the patient will need to remain in the hospital, assuming treatment plan goals are met and no additional complications. Post-Hospital Plan: Not yet determined Ewa Dominguez MD Dec 21, 2016 05:21
[2016-12-21 06:07] LABS: APTT (PATIENT) 24.1 SEC (24.3-30.1); PROTHROMBIN TIME - PATIENT 11.2 SEC (9.8-11.6)
--- NOTE | 2016-12-21 07:28 | HHI.PR ---
Subjective Remarks Patient seen and examined this morning. Patient's fianc at bedside. He states that he was able to get about an hour of rest, but it felt more like 8 hours of rest. He feels much better after being able to sleep. Complains of difficulty with shortness of breath and a cough, worse compared to his baseline. Denies chest pain, fevers or chills, nausea or vomiting. Objective Vital Signs Date Time Temp Pulse Resp B/P Pulse Ox O2 Delivery O2 Flow Rate FiO2 12/21/16 06:50 78 18 126/75 98 12/21/16 01:20 100 Trach Collar 5.00 28 12/21/16 01:01 70 18 123/77 99 Trach Collar 3 12/20/16 23:23 79 18 131/88 100 Trach Collar 3 12/20/16 22:31 100 Trach Collar 12/20/16 22:16 98.0 80 14 132/85 100 Result Diagram: 12/20/16222912/20/162231 Imaging Last Impressions Neck CT 12/21/16 0000 Signed Impressions: Service Date/Time: Wednesday, December 21, 2016 03:12 - CONCLUSION: 1. Tracheostomy present in satisfactory position. 2. Subcutaneous edema in the anterior neck. 3. Nonspecific circumferential soft tissue swelling around the supraglottic airway and extending cephalad to the vallecular region. Mild soft tissue swelling posterior soft palate and epiglottis as well. Juan Colin MD Chest CT 12/21/16 0000 Signed Impressions: Service Date/Time: Wednesday, December 21, 2016 03:15 - CONCLUSION: 1. Patchy ground glass opacity right middle lobe and lingula characteristic of a mild bronchopneumonia. No effusion or adenopathy. 2. Aneurysmal dilatation of the thoracic aorta and proximal abdominal aorta to 4.9 cm diameter similar to prior exam from November 2016. 3. Mild emphysema. 4. Moderate coronary calcifications. Tracheostomy present. Juan Colin MD Chest X-Ray 12/20/162225 Signed Impressions: Service Date/Time: Tuesday, December 20, 2016 22:46 - CONCLUSION: 1. No acute findings. No significant change from November 20. Juan Colin MD Soft Tissue Neck X-Ray 12/20/16 0000 Signed Impressions: Service Date/Time: Tuesday, December 20, 2016 22:50 - CONCLUSION: 1. Tracheostomy present. Questionable mild supraglottic airway narrowing. Juan Colin MD Objective Remarks GENERAL: Middle-aged white male in no acute distress, sitting up in bed, no respiratory distress, speaking full sentences clearly. at bedside. HEENT: PERRLA, EOMI. No scleral icterus or conjunctival pallor. CARDIOVASCULAR: Regular rate and rhythm. No obvious murmurs to auscultation. RESPIRATORY: No obvious rhonchi or wheezing. Clear to auscultation. Breath sounds equal bilaterally. GASTROINTESTINAL: Abdomen soft, non-tender, nondistended. BS normal. MUSCULOSKELETAL: Extremities without clubbing, cyanosis, or edema. No obvious deformities. NEUROLOGICAL: Awake, alert and oriented x4. No focal neurologic deficits. Moving both upper and lower extremities spontaneously. A/P Problem List: (1) PNA (pneumonia) ICD Code: J18.9 (2) HIV (human immunodeficiency virus infection) ICD Code: Z21 (3) Non-compliance ICD Code: Z91.19 (4) Tobacco abuse ICD Code: Z72.0 (5) Throat cancer ICD Code: C14.0 (6) Alcohol intoxication ICD Code: F10.129 (7) Pneumonitis ICD Code: J18.9 (8) Tracheostomy present ICD Code: Z93.0 (9) FERCHO (mycobacterium avium-intracellulare) ICD Code: A31.0 (10) Hypoxia ICD Code: R09.02 Assessment and Plan 1. PNA: CXR w/ no acute findings, CT Chest w/ patchy ground glass opacity right middle lobe and lingula characteristic of mild bronchopneumonia. Received Zosyn IV in ER, now on Levaquin IV. Continue DuoNeb prn, Symbicort, Mucinex. 2. Throat CA: S/p Tracheostomy by Dr. Salinas in addition to Chemo/ Radiation. Pt non-compliant w/ follow-up and treatment, yet highly upset tracheostomy remains in place. S/p eval by Dr. Madsen on previous admit w/ recommendation for follow up w/ Dr. Salinas and delay of decannulation until laryngeal edema improved. CT Neck w/ subcutaneous edema and anterior neck, nonspecific circumferential soft tissue swelling around supra-glottic airway. Stressed importance of pt following up w/ Dr. Rasmussin. 3. Non-Compliance: As above, pt non-compliant w/ treatment and follow up despite significant counselling. 4. HIV: Last CD4 30 on 11/18/16, prophylaxis w/ Bactrim/Zithro. 5. Alcohol Intoxication: Drinks daily, intoxicated on admission. Monitor for withdrawal. [place] protocol ordered, rally pack. Ativan prn. 6. Tobacco Abuse: Pt counselled. Ativan prn. 7. DVT Prophylaxis: SCD/Teds. 8. Social work for d/c planning as needed. Zehra Todd MD Dec 21, 2016 07:28
[2016-12-21] MEDS ORDERED: AZITHROMYCIN 600 MG TAB PO SCH (08:00)
--- NOTE | 2016-12-21 09:31 | EKG ---
Date Performed: 12/20/2016 Time Performed: 20:23:55 PTAGE: 61 years EKG: Sinus rhythm WITH OCCASIONAL SUPRAVENTRICULAR PREMATURE COMPLEXES INCOMPLETE RIGHT BUNDLE BRANCH BLOCK LEFT ANTER IOR FASCICULAR BLOCK SEPTAL MYOCARDIAL INFARCTION ABNORMAL ECG Compared to prior electrocardiogram,Pr obably no significant change. PREVIOUS TRACING : 11/17/2016 20.49 DOCTOR: Kishore Becker Interpretating Date/Time 12/21/2016 09:31:18
[2016-12-21] MEDS: guaiFENesin E.R. 600 MG TAB PO SCH ×2 (11:19→20:52)
[2016-12-21] MEDS: BUDESONIDE-FORMOTEROL 160/4.5 MCG INHALER INH SCH ×2 (11:21→20:53)
[2016-12-21] MEDS: SODIUM CHLORIDE 0.9% FLUSH 5 ML FLUSH FLUSH SCH ×2 (11:22→20:52)
[2016-12-21] MEDS ORDERED: LORazepam 2 MG TAB PO PRN ×2 (17:30)
[2016-12-21] MEDS ORDERED: FLUMAZENIL 0.5 MG/5 ML VIAL IV PUSH PRN ×2 (17:30)
[2016-12-21] MEDS ORDERED: LORazepam 1 MG TAB PO PRN ×2 (17:30)
[2016-12-21] MEDS ORDERED: LORazepam 2 MG/ML VIAL IV PUSH PRN ×8 (17:30)
[2016-12-21] MEDS: MORPHINE SULFATE 4 MG/ML INJ IV PUSH PRN (17:46)
[2016-12-21] MEDS: FOLIC ACID 1 MG TAB PO SCH (17:55)
[2016-12-21] MEDS: MULTIVITAMINS/MINERALS THERAPEUTIC TAB PO SCH (18:11)
[2016-12-21] MEDS: THIAMINE HCL 100 MG TAB PO SCH (18:11)
[2016-12-22] VITALS (7 sets, daily range): BP systolic 101–117; BP diastolic 55–66; PULSE 71–82; RESP 18–21; TEMP 97–99; O2SAT 95–99
[2016-12-22] MEDS: MORPHINE SULFATE 4 MG/ML INJ IV PUSH PRN ×2 (06:33→21:58)
[2016-12-22] MEDS: LEVOFLOXACIN 750 MG PREMIX INJ 150 ML IV SCH (06:33)
--- NOTE | 2016-12-22 07:34 | HHI.PR ---
Subjective Remarks Patient seen and examined this morning. He states that he was able to get about an some rest on and off last night, for a couple hours and then he would be woken up by nursing for vital signs. He states he has occasional shortness of breath, but this is improving. Denies chest pain, fevers or chills, nausea or vomiting. Objective Vital Signs Date Time Temp Pulse Resp B/P Pulse Ox O2 Delivery O2 Flow Rate FiO2 12/22/16 04:00 97.1 79 19 105/62 98 12/22/16 00:00 99.0 71 18 101/55 97 12/21/16 20:00 96.7 79 19 111/61 98 12/21/16 16:39 98.6 66 20 116/70 95 12/21/16 12:09 97.6 77 20 115/66 95 12/21/16 08:53 96.3 82 20 113/73 97 I/O 12/21/16 12/21/16 12/21/16 12/22/16 12/22/16 12/22/16 07:00 15:00 23:00 07:00 15:00 23:00 Intake Total 960 ml 240 ml Balance 960 ml 240 ml Intake Oral 960 ml 240 ml # Voids 5 2 Result Diagram: 12/20/16222912/20/162231 Imaging Last Impressions Neck CT 12/21/16 0000 Signed Impressions: Service Date/Time: Wednesday, December 21, 2016 03:12 - CONCLUSION: 1. Tracheostomy present in satisfactory position. 2. Subcutaneous edema in the anterior neck. 3. Nonspecific circumferential soft tissue swelling around the supraglottic airway and extending cephalad to the vallecular region. Mild soft tissue swelling posterior soft palate and epiglottis as well. Juan Colin MD Chest CT 12/21/16 0000 Signed Impressions: Service Date/Time: Wednesday, December 21, 2016 03:15 - CONCLUSION: 1. Patchy ground glass opacity right middle lobe and lingula characteristic of a mild bronchopneumonia. No effusion or adenopathy. 2. Aneurysmal dilatation of the thoracic aorta and proximal abdominal aorta to 4.9 cm diameter similar to prior exam from November 2016. 3. Mild emphysema. 4. Moderate coronary calcifications. Tracheostomy present. Juan Colin MD Chest X-Ray 12/20/166 Signed Impressions: Service Date/Time: Tuesday, December 20, 2016 22:46 - CONCLUSION: 1. No acute findings. No significant change from November 20. Juan Colin MD Soft Tissue Neck X-Ray 12/20/16 0000 Signed Impressions: Service Date/Time: Tuesday, December 20, 2016 22:50 - CONCLUSION: 1. Tracheostomy present. Questionable mild supraglottic airway narrowing. Juan Colin MD Objective Remarks GENERAL: Middle-aged white male in no acute distress, sitting up in bed, no respiratory distress, speaking full sentences clearly. HEENT: PERRLA, EOMI. No scleral icterus or conjunctival pallor. CARDIOVASCULAR: Regular rate and rhythm. No obvious murmurs to auscultation. RESPIRATORY: No obvious rhonchi or wheezing. Clear to auscultation bilaterally anteriorly and posteriorly. Breath sounds equal bilaterally. GASTROINTESTINAL: Abdomen soft, non-tender, nondistended. BS normal. MUSCULOSKELETAL: Extremities without clubbing, cyanosis, or edema. No obvious deformities. NEUROLOGICAL: Awake, alert and oriented x4. No focal neurologic deficits. Moving both upper and lower extremities spontaneously. A/P Problem List: (1) PNA (pneumonia) ICD Code: J18.9 (2) HIV (human immunodeficiency virus infection) ICD Code: Z21 (3) Non-compliance ICD Code: Z91.19 (4) Tobacco abuse ICD Code: Z72.0 (5) Throat cancer ICD Code: C14.0 (6) Alcohol intoxication ICD Code: F10.129 (7) Pneumonitis ICD Code: J18.9 (8) Tracheostomy present ICD Code: Z93.0 (9) FERCHO (mycobacterium avium-intracellulare) ICD Code: A31.0 (10) Hypoxia ICD Code: R09.02 Assessment and Plan 1. PNA: CXR w/ no acute findings, CT Chest w/ patchy ground glass opacity right middle lobe and lingula characteristic of mild bronchopneumonia. Received Zosyn IV in ER, now on Levaquin IV. Continue DuoNeb prn, Symbicort, Mucinex. 2. Throat CA: S/p Tracheostomy by Dr. Salinas in addition to Chemo/ Radiation. Pt non-compliant w/ follow-up and treatment, yet highly upset tracheostomy remains in place. S/p eval by Dr. Madsen on previous admit w/ recommendation for follow up w/ Dr. Salinas and delay of decannulation until laryngeal edema improved. CT Neck w/ subcutaneous edema and anterior neck, nonspecific circumferential soft tissue swelling around supra-glottic airway. Stressed importance of pt following up w/ Dr. Salinas. 3. Non-Compliance: As above, pt non-compliant w/ treatment and follow up despite significant counselling. 4. HIV: Last CD4 30 on 11/18/16, prophylaxis w/ Bactrim/Zithro. 5. Alcohol Intoxication: Drinks daily, intoxicated on admission. Monitor for withdrawal. CIWA protocol ordered, rally pack. Ativan prn. 6. Tobacco Abuse: Pt counselled. Ativan prn. 7. DVT Prophylaxis: SCD/Teds. 8. Social work for d/c planning as needed. Zehra Todd MD Dec 22, 2016 07:34
[2016-12-22] MEDS: MULTIVITAMINS/MINERALS THERAPEUTIC TAB PO SCH (08:32)
[2016-12-22] MEDS: FOLIC ACID 1 MG TAB PO SCH (08:32)
[2016-12-22] MEDS: SODIUM CHLORIDE 0.9% FLUSH 5 ML FLUSH FLUSH SCH ×2 (08:32→20:51)
[2016-12-22] MEDS: THIAMINE HCL 100 MG TAB PO SCH (08:32)
[2016-12-22] MEDS: guaiFENesin E.R. 600 MG TAB PO SCH ×2 (08:32→20:50)
[2016-12-22] MEDS: BUDESONIDE-FORMOTEROL 160/4.5 MCG INHALER INH SCH ×2 (08:33→20:50)
[2016-12-22 08:47] LABS: AUTOMATED NEUTROPHIL # 2.4 TH/MM3 (1.8-7.7); BASOPHIL % 0.7 % (0.0-2.0); EOSINOPHIL # 0.5 TH/MM3 (0-0.4); HEMATOCRIT 34.8 % (39.0-51.0); HEMO FLAGS DIFF FINAL; LYMPH % 28.1 % (9.0-44.0); LYMPHOCYTE # 1.3 TH/MM3 (1.0-4.8); MEAN CELL VOLUME 98.8 FL (80.0-100.0); MEAN CORPUSCULAR HEMOGLOBIN 34.1 PG (27.0-34.0); MEAN CORPUSCULAR HGB CONC 34.5 % (32.0-36.0); MONO % 10.4 % (0.0-8.0); NEUT % 50.8 % (16.0-70.0); PLATELET COUNT 165 TH/MM3 (150-450); RED BLOOD COUNT 3.52 MIL/MM3 (4.50-5.90); RED CELL DISTRIBUTION WIDTH 14.1 % (11.6-17.2); WHITE BLOOD COUNT 4.7 TH/MM3 (4.0-11.0)
[2016-12-22 09:27] LABS: ANION GAP 7 MEQ/L (5-15); BICARBONATE 27.8 MEQ/L (21.0-32.0); BLOOD UREA NITROGEN 12 MG/DL (7-18); CHLORIDE 105 MEQ/L (98-107); POTASSIUM 3.7 MEQ/L (3.5-5.1); SODIUM (NA) 140 MEQ/L (136-145)
[2016-12-22 09:41] LABS: AST (GOT) 14 U/L (15-37); GLOMERULAR FILTRATION RATE 76 ML/MIN (>89)
[2016-12-22 09:45] LABS: ALKALINE PHOSPHATASE 87 U/L (45-117); ALT (GPT) 15 U/L (12-78); TOTAL BILIRUBIN ADULT 0.3 MG/DL (0.2-1.0)
[2016-12-23] VITALS (7 sets, daily range): BP systolic 104–123; BP diastolic 62–81; PULSE 70–87; RESP 16–19; TEMP 96.2–98.2; O2SAT 97–98
[2016-12-23] MEDS: LEVOFLOXACIN 750 MG PREMIX INJ 150 ML IV SCH (06:07)
[2016-12-23] MEDS: MORPHINE SULFATE 4 MG/ML INJ IV PUSH PRN ×4 (06:09→20:44)
[2016-12-23 07:12] LABS: BICARBONATE 24.4 MEQ/L (21.0-32.0); POTASSIUM 3.6 MEQ/L (3.5-5.1)
[2016-12-23 07:16] LABS: AUTOMATED NEUTROPHIL # 1.8 TH/MM3 (1.8-7.7); BASOPHIL % 0.8 % (0.0-2.0); EOSINOPHIL # 0.4 TH/MM3 (0-0.4); EOSINOPHIL % 10.2 % (0.0-4.0); HEMATOCRIT 34.6 % (39.0-51.0); HEMO FLAGS DIFF FINAL; LYMPH % 32.5 % (9.0-44.0); LYMPHOCYTE # 1.3 TH/MM3 (1.0-4.8); MEAN CELL VOLUME 98.3 FL (80.0-100.0); MEAN CORPUSCULAR HEMOGLOBIN 33.4 PG (27.0-34.0); MEAN CORPUSCULAR HGB CONC 33.9 % (32.0-36.0); MONO % 12.2 % (0.0-8.0); NEUT % 44.3 % (16.0-70.0); PLATELET COUNT 149 TH/MM3 (150-450); RED BLOOD COUNT 3.52 MIL/MM3 (4.50-5.90); RED CELL DISTRIBUTION WIDTH 13.5 % (11.6-17.2)
[2016-12-23] MEDS ORDERED: SULFAMETHOXAZOLE-TRIMETHOPRIM DS 800-160 MG TAB PO SCH (09:00)
[2016-12-23] MEDS: FOLIC ACID 1 MG TAB PO SCH (10:20)
[2016-12-23] MEDS: guaiFENesin E.R. 600 MG TAB PO SCH ×2 (10:20→20:43)
[2016-12-23] MEDS: MULTIVITAMINS/MINERALS THERAPEUTIC TAB PO SCH (10:20)
[2016-12-23] MEDS: metroNIDAZOLE 500 MG TAB PO SCH ×2 (10:21→18:18)
[2016-12-23] MEDS: THIAMINE HCL 100 MG TAB PO SCH (10:21)
[2016-12-23] MEDS: SODIUM CHLORIDE 0.9% FLUSH 5 ML FLUSH FLUSH SCH ×2 (10:21→20:45)
[2016-12-23] MEDS: BUDESONIDE-FORMOTEROL 160/4.5 MCG INHALER INH SCH ×2 (10:23→20:45)
--- NOTE | 2016-12-23 14:17 | HHI.PR ---
Subjective Remarks Patient seen and examined around 11:30 AM. Patient says he is feeling better. He says that shortness of breath is much improved. He says he may feel like going home tomorrow. Denies any chest pain Objective Vital Signs Date Time Temp Pulse Resp B/P Pulse Ox O2 Delivery O2 Flow Rate FiO2 12/23/16 12:00 98.1 81 16 109/67 98 12/23/16 08:57 98 21 12/23/16 08:00 98.2 80 16 110/70 98 12/23/16 04:00 97.4 70 18 121/65 98 12/23/16 00:00 97.6 72 19 123/70 98 12/22/16 20:00 98.4 82 18 117/59 97 12/22/16 17:26 99 21 12/22/16 16:00 98.0 74 20 116/66 99 I/O 12/22/16 12/22/16 12/22/16 12/23/16 12/23/16 12/23/16 07:00 15:00 23:00 07:00 15:00 23:00 Intake Total 240 ml 1110 ml 480 ml 240 ml Balance 240 ml 1110 ml 480 ml 240 ml Intake Oral 240 ml 960 ml 480 ml 240 ml IV Total 150 ml # Voids 2 2 2 # Bowel Movements 1 Result Diagram: 12/23/1660412/23/16 06 Objective Remarks GENERAL: Patient sitting up in bed. Appears comfortable. Alert and oriented 3. SKIN: Warm and dry. HEAD: Normocephalic. EYES: No scleral icterus. No injection or drainage. NECK: Supple, trachea midline. No JVD. Tracheostomy with no surrounding erythema. No perceivable induration. CARDIOVASCULAR: Regular rate and rhythm without murmurs, gallops, or rubs. RESPIRATORY: Breath sounds equal bilaterally. No accessory muscle use. GASTROINTESTINAL: Abdomen soft, non-tender, nondistended. MUSCULOSKELETAL: No cyanosis, or edema. BACK: Nontender without obvious deformity. No CVA tenderness. A/P Assessment and Plan //PNA: CXR w/ no acute findings, CT Chest w/ patchy ground glass opacity right middle lobe and lingula characteristic of mild bronchopneumonia. Received Zosyn IV in ER, now on Levaquin IV. Continue DuoNeb prn, Symbicort, Mucinex. -12/23. Add metronidazole for anaerobic coverage given risk of aspiration. Patient has follow-up with [facility] as outpatient. //Throat CA: S/p Tracheostomy by Dr. Salinas in addition to Chemo/Radiation. Pt non-compliant w/ follow-up and treatment, yet highly upset tracheostomy remains in place. S/p eval by Dr. Madsen on previous admit w/ recommendation for follow up w/ Dr. Salinas and delay of decannulation until laryngeal edema improved. CT Neck w/ subcutaneous edema and anterior neck, nonspecific circumferential soft tissue swelling around supra-glottic airway. Stressed importance of pt following up w/ Dr. Salinas. -12/23. Again stressed importance of following up as outpatient. Has follow-up with [facility]. //Sleep issues. This is likely alcohol withdrawal. We'll schedule Ativan for tonight prior to bedtime. //Non-Compliance: As above, pt non-compliant w/ treatment and follow up despite significant counselling. //HIV: Last CD4 30 on 11/18/16 -Continue prophylaxis w/ Bactrim/Zithro. // Alcohol Intoxication: Drinks daily, intoxicated on admission. Monitor for withdrawal. -Continue CIWA protocol -not requiring any. - Ativan prn. //Tobacco Abuse: Pt counselled. Ativan prn. //DVT Prophylaxis: SCD/Teds. //Social work for d/c planning as needed. Discharge Planning Likely discharge tomorrow on by mouth antibiotics. Patient will need to follow- up with [facility], pulmonology. Adrián Montes MD Dec 23, 2016 14:16
[2016-12-23] MEDS ORDERED: LEVA750T PO (14:18)
[2016-12-23] MEDS ORDERED: METR-1 PO (14:18)
[2016-12-23] MEDS ORDERED: LORazepam 2 MG TAB PO ONE (20:00)
[2016-12-24] MEDS: metroNIDAZOLE 500 MG TAB PO SCH ×2 (01:05→09:09)
[2016-12-24] MEDS: MORPHINE SULFATE 4 MG/ML INJ IV PUSH PRN ×3 (01:05→10:23)
[2016-12-24 01:11] VITALS: BP 109/55; PULSE 75; RESP 17; TEMP 98.5; O2SAT 95
[2016-12-24 05:13] VITALS: BP 114/67; PULSE 76; RESP 17; TEMP 96.6; O2SAT 96
[2016-12-24] MEDS: LEVOFLOXACIN 750 MG PREMIX INJ 150 ML IV SCH (05:51)
[2016-12-24 05:56] VITALS: BP 111/67; PULSE 79; RESP 17; TEMP 97.4; O2SAT 98
[2016-12-24 07:57] VITALS: BP 109/80; PULSE 102; RESP 20; TEMP 96.4; O2SAT 98
[2016-12-24] MEDS: guaiFENesin E.R. 600 MG TAB PO SCH (09:09)
[2016-12-24] MEDS: FOLIC ACID 1 MG TAB PO SCH (09:09)
[2016-12-24] MEDS: BUDESONIDE-FORMOTEROL 160/4.5 MCG INHALER INH SCH (09:09)
[2016-12-24] MEDS: THIAMINE HCL 100 MG TAB PO SCH (09:09)
[2016-12-24] MEDS: MULTIVITAMINS/MINERALS THERAPEUTIC TAB PO SCH (09:09)
[2016-12-24] MEDS: SODIUM CHLORIDE 0.9% FLUSH 5 ML FLUSH FLUSH SCH (09:10)
--- NOTE | 2016-12-25 00:02 | HHI.PR ---
Subjective Remarks date of service 12/24/16.patient seen 12/24/16 morning around 10 AM. Says he is feeling well. Feels comfortable going home. Agrees that he will inform OR of his hospitalization, requests close follow-up with PCP, pulmonology for this week. Objective Vital Signs Date Time Temp Pulse Resp B/P Pulse Ox O2 Delivery O2 Flow Rate FiO2 12/24/16 07:57 96.4 102 20 109/80 98 12/24/16 06:08 17 12/24/16 05:56 97.4 79 17 111/67 98 12/24/16 05:13 96.6 76 17 114/67 96 12/24/16 01:11 98.5 75 17 109/55 95 I/O 12/23/16 12/23/16 12/23/16 12/24/16 12/24/16 12/24/16 07:00 15:00 23:00 07:00 15:00 23:00 Intake Total 240 ml 1100 ml 480 ml Balance 240 ml 1100 ml 480 ml Intake Oral 240 ml 1100 ml 480 ml # Voids 4 1 Result Diagram: 12/23/1660412/23/16604 Objective Remarks GENERAL: Patient sitting up in bed. Appears comfortable. Alert and oriented 3.exam unchanged from the prior SKIN: Warm and dry. HEAD: Normocephalic. EYES: No scleral icterus. No injection or drainage. NECK: Supple, trachea midline. No JVD. Tracheostomy with no surrounding erythema. No perceivable induration. CARDIOVASCULAR: Regular rate and rhythm without murmurs, gallops, or rubs. RESPIRATORY: Breath sounds equal bilaterally. No accessory muscle use. GASTROINTESTINAL: Abdomen soft, non-tender, nondistended. MUSCULOSKELETAL: No cyanosis, or edema. BACK: Nontender without obvious deformity. No CVA tenderness. A/P Assessment and Plan //PNA: CXR w/ no acute findings, CT Chest w/ patchy ground glass opacity right middle lobe and lingula characteristic of mild bronchopneumonia. Received Zosyn IV in ER, now on Levaquin IV. Continue DuoNeb prn, Symbicort, Mucinex. -12/23. Add metronidazole for anaerobic coverage given risk of aspiration. Patient has follow-up with [place] [facility] as outpatient. -12/24. Discharge home on course of metronidazole, as well as Levaquin. Close follow-up with pulmonology. //Throat CA: S/p Tracheostomy by Dr. Salinas in addition to Chemo/Radiation. Pt non-compliant w/ follow-up and treatment, yet highly upset tracheostomy remains in place. S/p eval by Dr. Madsen on previous admit w/ recommendation for follow up w/ Dr. Salinas and delay of decannulation until laryngeal edema improved. CT Neck w/ subcutaneous edema and anterior neck, nonspecific circumferential soft tissue swelling around supra-glottic airway. Stressed importance of pt following up w/ Dr. Salinas. -12/23. Again stressed importance of following up as outpatient. [facility] -12/24. Again discussed close follow-up. and patient understand. //Sleep issues. This is likely alcohol withdrawal. We'll schedule Ativan for tonight prior to bedtime. -12/24. Sleep improved with withholding blood pressure checks at night. //Non-Compliance: As above, pt non-compliant w/ treatment and follow up despite significant counselling. //HIV: Last CD4 30 on 11/18/16 -Continue prophylaxis w/ Bactrim/Zithro. // Alcohol Intoxication: Drinks daily, intoxicated on admission. Monitor for withdrawal. -Continue CIWA protocol -not requiring any. - Ativan prn. -Cessation recommended. Patient refuses //Tobacco Abuse: Pt counselled. Ativan prn. //DVT Prophylaxis: SCD/Teds. //Social work for d/c planning as needed. Discharge Planning discharged 12/24 on by mouth antibiotics. Patient will need to follow-up with [place] [facility], pulmonology. Adrián Montes MD Dec 25, 2016 00:02
--- NOTE | 2016-12-25 00:09 | HHI.DS ---
Discharge Summary Admission Date Dec 21, 2016 at 04:58 Discharge Date: Dec 24, 2016 Admitting Diagnosis BILATERAL PNA (1) PNA (pneumonia) ICD Code: J18.9 (2) Throat cancer ICD Code: C14.0 (3) Non-compliance ICD Code: Z91.19 (4) HIV (human immunodeficiency virus infection) ICD Code: Z21 (5) Tobacco abuse ICD Code: Z72.0 (6) Alcohol intoxication ICD Code: F10.129 Procedures no invasive procedures performed Brief History - From Admission This is a 61-year-old male with a PMH of Throat CA s/p Tracheostomy, PEG Tube Placement w/ Removal, HIV (CD4 30 on 11/18/16), Bipolar Disorder, PTSD, h/o CVA, Non-Compliance and COPD who was brought to the ER by EMS after falling off bar stool and complaining of neck swelling. Pt acutely intoxicated. Recent admit -11/22/16 for Pneumonitis and demanding for Trach/PEG to be removed, s/p eval by ID (Dr. Hernandez), Pulmonary (Dr. Mckeon) and ENT (Dr. Madsen), s/p IV Abx, s/ p PEG Tube removal, S/p Bronch. Eval by Dr. Madsen w/ recommendation to delay decannulation for 6mo-1yr following treatment for cancer and for pt to follow up w/ Dr. Salinas as outpatient, however pt is notoriously non-compliant. States he had 4 [employer] at bar, fell off bar stool and had c/o throat pain. Reports increased secretions x4 days. Denies fever or chills. Both Pt and extremely angry about overall care they have received from every facility and highly upset tracheostomy hasn't been removed. On arrival, BP 131/ 88, HR 79, O2 sat 100% on 3L Trach Collar, Afebrile. WBC normal, no elevated neutrophil count. Chemistry unremarkable. Neck X-ray with tracheostomy, questionable mild supraglottic airway narrowing. CXR with no acute findings. CT Neck with tracheostomy present, subcutaneous edema and anterior neck, nonspecific circumferential soft tissue swelling around supraglottic airway and CT Chest w/ patchy ground glass opacity RML and lingula characteristic of mild bronchopneumonia. S/p Zosyn in ER. CBC/BMP: 12/23/16 0605 12/23/16 0605 Significant Findings Laboratory Tests Test 12/22/16 12/23/16 07:40 06:05 Red Blood Count 3.52 MIL/MM3 3.52 MIL/MM3 (4.50-5.90) (4.50-5.90) Hemoglobin 12.0 GM/DL 11.7 GM/DL (13.0-17.0) (13.0-17.0) Hematocrit 34.8 % 34.6 % (39.0-51.0) (39.0-51.0) Mean Corpuscular Hemoglobin 34.1 PG (27.0-34.0) Monocytes (%) (Auto) 10.4 % 12.2 % (0.0-8.0) (0.0-8.0) Eosinophils (%) (Auto) 10.0 % 10.2 % (0.0-4.0) (0.0-4.0) Eosinophils # (Auto) 0.5 TH/MM3 (0-0.4) Estimat Glomerular Filtration 76 ML/MIN (>89) 79 ML/MIN (>89) Rate Aspartate Amino Transf 14 U/L (15-37) (AST/SGOT) Albumin 2.8 GM/DL (3.4-5.0) Platelet Count 149 TH/MM3 (150-450) Chloride Level 109 MEQ/L (98-107) Imaging Last Impressions Neck CT 12/21/16 0000 Signed Impressions: Service Date/Time: Wednesday, December 21, 2016 03:12 - CONCLUSION: 1. Tracheostomy present in satisfactory position. 2. Subcutaneous edema in the anterior neck. 3. Nonspecific circumferential soft tissue swelling around the supraglottic airway and extending cephalad to the vallecular region. Mild soft tissue swelling posterior soft palate and epiglottis as well. Juan Colin MD Chest CT 12/21/16 0000 Signed Impressions: Service Date/Time: Wednesday, December 21, 2016 03:15 - CONCLUSION: 1. Patchy ground glass opacity right middle lobe and lingula characteristic of a mild bronchopneumonia. No effusion or adenopathy. 2. Aneurysmal dilatation of the thoracic aorta and proximal abdominal aorta to 4.9 cm diameter similar to prior exam from November 2016. 3. Mild emphysema. 4. Moderate coronary calcifications. Tracheostomy present. Juan Colin MD Chest X-Ray 12/20/16 2226 Signed Impressions: Service Date/Time: Tuesday, December 20, 2016 22:46 - CONCLUSION: 1. No acute findings. No significant change from November 20. Juan Colin MD Soft Tissue Neck X-Ray 12/20/16 0000 Signed Impressions: Service Date/Time: Tuesday, December 20, 2016 22:50 - CONCLUSION: 1. Tracheostomy present. Questionable mild supraglottic airway narrowing. Juan Colin MD Hospital Course Chest CT showed patchy groundglass opacities right middle lobe, as well as lingula. Patient was started on antibiotics with Levaquin, and subsequently metronidazole was added for anaerobic coverage due to risk for aspiration. Patient greatly improved, was feeling well on day of discharge. He'll need close follow-up with primary care and pulmonology. Will need tracheostomy changed out. //PNA: CXR w/ no acute findings, CT Chest w/ patchy ground glass opacity right middle lobe and lingula characteristic of mild bronchopneumonia. Received Zosyn IV in ER, now on Levaquin IV. Continue DuoNeb prn, Symbicort, Mucinex. -12/23. Add metronidazole for anaerobic coverage given risk of aspiration. Patient has follow-up with [facility] as outpatient. -12/24. Discharge home on course of metronidazole, as well as Levaquin. Close follow-up with pulmonology. //Throat CA: S/p Tracheostomy by Dr. Salinas in addition to Chemo/Radiation. Pt non-compliant w/ follow-up and treatment, yet highly upset tracheostomy remains in place. S/p eval by Dr. Madsen on previous admit w/ recommendation for follow up w/ Dr. Salinas and delay of decannulation until laryngeal edema improved. CT Neck w/ subcutaneous edema and anterior neck, nonspecific circumferential soft tissue swelling around supra-glottic airway. Stressed importance of pt following up w/ Dr. Salinas. -12/23. Again stressed importance of following up as outpatient. [facility] -12/24. Again discussed close follow-up. and patient understand. //Sleep issues. This is likely alcohol withdrawal. We'll schedule Ativan for tonight prior to bedtime. -12/24. Sleep improved with withholding blood pressure checks at night. //Non-Compliance: As above, pt non-compliant w/ treatment and follow up despite significant counselling. //HIV: Last CD4 30 on 11/18/16 -Continue prophylaxis w/ Bactrim/Zithro. // Alcohol Intoxication: Drinks daily, intoxicated on admission. Monitor for withdrawal. -Continue CIWA protocol -not requiring any. - Ativan prn. -Cessation recommended. Patient refuses //Tobacco Abuse: Pt counselled. Ativan prn. //DVT Prophylaxis: SCD/Teds. //Social work for d/c planning as needed. Pt Condition on Discharge: Good Discharge Disposition: Discharge Home Discharge Time: <= 30 minutes Discharge Instructions DIET: Follow Instructions for: As Tolerated, No Restrictions Speech Therapy-Diet Recommends: Regular Activities you can perform: Regular-No Restrictions Follow up Referrals: Oncology - 1 Week PCP Follow-up - 1 Week [facility] Pulmonology - 1 Week with [facility] New Medications: Levofloxacin (Levaquin) 750 Mg Tab 750 MG PO DAILY Infection #5 Ref 0 TAB Metronidazole (Flagyl) 500 Mg Tab 500 MG PO Q8H pneumonia Days 7 TAB Continued Medications: Azithromycin (Azithromycin) 600 Mg Tab 1200 MG PO Q7D Infection Days 28 TAB Morphine IR (Morphine IR) 15 Mg Tab 15 MG PO Q12HR PRN PAIN #20 Ref 0 TAB Sulfamethoxazole-Trimethoprim (Bactrim DS) 800-160 Mg Tab 1 TAB PO MoWeFr@[id number] Infection Days 30 TAB Adrián Montes MD Dec 25, 2016 00:09
== END 2016-12-24 11:15 | disposition home or self-care (01) | DRG 977 ==
LOC: NEPC 22:15 → NEDA 12-21 04:58 → HOCB 12-21 07:28
PROVIDERS: ADMIT Internal Medicine; ATTEND Internal Medicine
DX: B20 Human immunodeficiency virus [HIV] disease (principal); A31.0 Pulmonary mycobacterial infection; K74.60 Unspecified cirrhosis of liver; Z93.0 Tracheostomy status; J18.0 Bronchopneumonia, unspecified organism; J44.0 Chronic obstructive pulmonary disease with (acute) lower respiratory infection; F10.239 Alcohol dependence with withdrawal, unspecified; K21.9 Gastro-esophageal reflux disease without esophagitis; R09.02 Hypoxemia; M19.90 Unspecified osteoarthritis, unspecified site; F31.9 Bipolar disorder, unspecified; F43.10 Post-traumatic stress disorder, unspecified; Y90.8 Blood alcohol level of 240 mg/100 ml or more; Z72.0 Tobacco use; Z85.819 Personal history of malignant neoplasm of unspecified site of lip, oral cavity, and pharynx; Z91.14 Patient's other noncompliance with medication regimen; Z91.19 Patient's noncompliance with other medical treatment and regimen; Z92.21 Personal history of antineoplastic chemotherapy; Z92.3 Personal history of irradiation
CPT/HCPCS: 70360; 70491; 71010; 71260; 80048; 80053; 80307; 82550; 83735; 84100; 84484; 85025; 85610; 85730; 87040; 93005; 96361; 96374; 96375; A7520; A7521; J1170; J1956; J2060; J2270; J2543; J7030; Q9967